=== PATIENT | female | born 1965 | race Caucasian/White ===

== ENCOUNTER 2019-07-19 10:09 | Emergency (ER) | payer OTHER ==
--- OUTSIDE RECORDS SUMMARY | 2019-07-19 10:15 | XMS REPORT ---
:1965 Author Organization e[employer]Works Care Team Providers Name Role Phone Griffin Chadwick Provider Role Unavailable Allergies No Known Allergies Problems Problem Type Condition Code Onset Dates Condition Status Problem Morbid obesity E66.01 Active Problem Hypertension I10 Active Problem Piriformis syndrome of right side G57.01 Active Medications No Known Medications Results No Known Results Summary Purpose eClinicalWorks Submission
--- OUTSIDE RECORDS SUMMARY | 2019-07-19 10:15 | XMS REPORT ---
:1965 Author Organization [employer] Care Team Providers Name Role Phone Heather Gallegos Provider Role Unavailable Allergies, Adverse Reactions, Alerts Substance Reaction Event Type N.K.D.A. Info Not Available Non Drug Allergy Problems Problem Type Condition Code Onset Dates Condition Status Problem Morbid obesity E66.01 Active Problem Hypertension I10 Active Assessment Acute cystitis without hematuria N30.00 Active Assessment Dysuria R30.0 Active Medications Medication Code Code Instructions Start End Status Dosage System Date Date Nitrofurantoin [facility] 12327604160 100 MG Orally Jul 25, Jul Active 1 capsule Macrocrystal BID 2017, with food 2018 or milk Colestipol HCl [facility] [address]-87 1 GM Orally Active 1 tablet Twice a day Results Name Result Date Reference Range Unit Abnormality Flag URINALYSIS AUTO W/O SCOPE (52990) ----NIT P [id number] ----URO 2.0 20180725 ----PROTEIN 1+ 20180725 ----pH 7 20180725 ----BLO N [id number] ----GLUCOSE TR [id number] ----SABAS N [id number] ----BILIRUBIN 1+ [id number] ----KETONES N [id number] ----SPECIFIC GRAVITY 1.015 [id number] Summary Purpose eClinicalWorks Submission
--- OUTSIDE RECORDS SUMMARY | 2019-07-19 10:15 | XMS REPORT ---
:1965 Author Organization [employer] Care Team Providers Name Role Phone Heather Gallegos Provider Role Unavailable Allergies No Known Allergies Problems Problem Type Condition Code Onset Dates Condition Status Problem Morbid obesity E66.01 Active Problem Hypertension I10 Active Problem Piriformis syndrome of right side G57.01 Active Medications No Known Medications Results No Known Results Summary Purpose eClinicalWorks Submission
--- OUTSIDE RECORDS SUMMARY | 2019-07-19 10:15 | XMS REPORT ---
:1965 Author Organization [employer]Works Care Team Providers Name Role Phone Nika Gallegosy Provider Role Unavailable Allergies No Known Allergies Problems Problem Type Condition Code Onset Dates Condition Status Problem Morbid obesity E66.01 Active Problem Hypertension I10 Active Medications Medication Code System Code Instructions Start End Date Status Dosage Date Levofloxacin [facility] 87084351891 500 MG Orally Jul 28, Aug 04, Active 1 tablet Once a day 2017 2017 Results No Known Results Summary Purpose eClinicalWorks Submission
--- OUTSIDE RECORDS SUMMARY | 2019-07-19 10:15 | XMS REPORT ---
:1965 Author Organization [employer]Works Care Team Providers Name Role Phone Griffin Chadwick Provider Role Unavailable Allergies, Adverse Reactions, Alerts Substance Reaction Event Type N.K.D.A. Info Not Available Non Drug Allergy Problems Problem Type Condition Code Onset Dates Condition Status Assessment Piriformis syndrome of right side G57.01 Active Assessment Contusion of right hip, initial S70.01XA Active encounter Problem Morbid obesity E66.01 Active Problem Hypertension I10 Active Problem Piriformis syndrome of right side G57.01 Active Assessment Trochanteric bursitis of right hip M70.61 Active Assessment Ischial bursitis of right side M70.71 Active Assessment Pain in joint of right hip M25.551 Active Medications Medication Code Code Instructions Start End Status Dosage System Date Date Vitamin D-3 [facility] 25354-47[address] Active not defined Calcium Citrate [facility] 15112-77545 Active not defined Multivitamin [facility] 10252-52943 Active not defined Colestipol HCl [facility] 03480510557 1 GM Orally Active 1 tablet Twice a day Vitamin B-12 [facility] 20398-44466 Active not defined Results Name Result Date Reference Range Unit Abnormality Flag Physical Therapy Summary Purpose eClinicalWorks Submission
--- OUTSIDE RECORDS SUMMARY | 2019-07-19 10:15 | XMS REPORT ---
:1965 Author Organization [employer]ClinicalWorks Care Team Providers Name Role Phone Ana Maria Gallegos Provider Role Unavailable Allergies, Adverse Reactions, Alerts Substance Reaction Event Type N.K.D.A. Info Not Available Non Drug Allergy Problems Problem Type Condition Code Onset Dates Condition Status Assessment Rhonchi R09.89 Active Assessment Bronchitis J40 Active Assessment Cough R05 Active Problem Bronchitis J40 Active Problem Rhonchi R09.89 Active Problem Cough R05 Active Problem Hypertension I10 Active Problem Piriformis syndrome of right side G57.01 Active Problem Morbid obesity E66.01 Active Medications Medication Code Code Instructions Start End Status Dosage System Date Date Vitamin D-3 [facility] 53704-[address] Active not defined Azithromycin [facility] 84435277065 250 MG Orally Jun 22, Jun 27, Active 2 tablets Once a day 2018 2018 on the first day, then 1 tablet daily for 4 days Multivitamin [facility] 54604-[address]157 Active not defined Calcium Citrate [facility] 31728-42611 Active not defined Vitamin B-12 [facility] 21909-11390 Active not defined ProAir HFA [facility] 54072692881 108 (90 Base) Jun 22, Active 2 puffs as MCG/ACT 2019 needed Inhalation every 6 hrs Colestipol HCl [facility] 04224088525 1 GM Orally Active 1 tablet Twice a day Results No Known Results Summary Purpose eClinicalWorks Submission
--- OUTSIDE RECORDS SUMMARY | 2019-07-19 10:15 | XMS REPORT ---
:1965 Author Organization eClinicalWorks Care Team Providers Name Role Phone Rosy Heather Provider Role Unavailable Allergies, Adverse Reactions, Alerts Substance Reaction Event Type N.K.D.A. Info Not Available Non Drug Allergy Problems Problem Type Condition Code Onset Dates Condition Status Problem Morbid obesity E66.01 Active Problem Hypertension I10 Active Assessment Callus of foot L84 Active Assessment Rib pain on right side R07.81 Active Medications Medication Code Code Instructions Start End Status Dosage System Date Date Colestipol HCl [facility] 11282588637 1 GM Orally Active 1 tablet Twice a day Multivitamin [facility] 78041-[address]309 Active not defined Calcium Citrate [facility] [address]18-[address] Active not defined Vitamin D-3 [facility] [address]72-[address]703 Active not defined Vitamin B-12 [facility] [address]93-[address]78 Active not defined Results No Known Results Summary Purpose eClinicalWorks Submission
--- OUTSIDE RECORDS SUMMARY | 2019-07-19 10:15 | XMS REPORT ---
:1965 Author Organization eClinicalWorks Care Team Providers Name Role Phone Heather Gallegos Provider Role Unavailable Allergies No Known Allergies Problems Problem Type Condition Code Onset Dates Condition Status Problem Morbid obesity E66.01 Active Problem Hypertension I10 Active Medications No Known Medications Results No Known Results Summary Purpose eClinicalWorks Submission
[2019-07-19] MEDS ORDERED: dexAMETHasone 10 MG/ML VIAL ONE (11:46)
[2019-07-19] MEDS ORDERED: MEPERIDINE HCL 25 MG/0.5 ML ONE ×2 (11:46→14:24)
[2019-07-19] MEDS ORDERED: NA CHLORIDE 0.9% 1,000 ML ONE (11:47)
[2019-07-19] MEDS ORDERED: METOCLOPRAMIDE 10 MG/2mL INJ ONE (11:47)
[2019-07-19] MEDS ORDERED: ONDANSETRON 4 MG/2 ML VIAL ONE ×2 (12:31→14:24)
--- NOTE | 2019-07-19 12:55 | RAD REPORT ---
EXAM DESCRIPTION: CT - Head Brain Wo Cont - 07/19/2019 12:43 pm CLINICAL HISTORY: HEADACHE Headache, drowsiness COMPARISON: <Comparisons> TECHNIQUE: All CT scans are performed using dose optimization technique as appropriate and may inclu de automated exposure control or mA/KV adjustment according to patient size. FINDINGS: No intracranial hemorrhage, hydrocephalus or extra-axial fluid collection.No areas of brai n edema or evidence of midline shift. The paranasal sinuses and mastoids are clear. The calvarium is intact. IMPRESSION: No acute intracranial abnormality.
[2019-07-19 13:16] LABS: Absolute Lymphocytes (CBC) 1.5 K/uL (0.7-4.9); Basophils % 0.4 % (0-1.3); Hematocrit 42.6 % (36.0-45.0); RBC Red Blood Cell Count 4.68 M/uL (3.86-4.86)
[2019-07-19 13:38] LABS: Urine Blood NEGATIVE (NEG); Urine Glucose NEGATIVE (NEG); Urine Protein NEGATIVE (NEG); Urine Specific Gravity 1.015 (1.005-1.030)
[2019-07-19] MEDS ORDERED: DIPHENHYDRAMINE 50 MG/ML VIAL ONE (14:33)
--- NOTE | 2019-07-19 14:38 | RAD REPORT ---
EXAM DESCRIPTION: CT - Head angio - 07/19/2019 2:13 pm CLINICAL HISTORY: acute onset headache TECHNIQUE: During dynamic enhancement using nonionic IV contrast, axial 1 millimeter thick images of the head were obtained. Sagittal and axial reconstruction images were generated using MIP technique and reviewed. All CT scans are performed using dose optimization technique as appropriate and may include automated exposure control or mA/KV adjustment according to patient size. COMPARISON: CT head same date FINDINGS: No aneurysm or vascular malformation identified. Major venous sinuses are patent. No stenosis, named branch occlusion, vasculitis or other significant vascular finding identifiable. IMPRESSION: Negative CT angio head examination.
--- NOTE | 2019-07-19 15:41 | ER ---
Nurse's Notes [facility] Name: Marjorie Vega Age: 54 yrs Sex: Female : 1965 Arrival Date: 07/19/2019 Time: 10:12 Bed 8 Private MD: Diagnosis: Headache;Hypertension Presentation: 07/19 10:36 Presenting complaint: Patient states: headache to whole head and sinus pressure that aa5 began this morning around 0500. Pt reports nausea, denies vomiting. Reports runny nose, denies cough. Transition of care: patient was not received from another setting of care. Onset of symptoms was July 19, 2019. Risk Assessment: Do you want to hurt yourself or someone else? Patient reports no desire to harm self or others. Initial Sepsis Screen: Does the patient meet any 2 criteria? No. Patient's initial sepsis screen is negative. Does the patient have a suspected source of infection? No. Patient's initial sepsis screen is negative. Care prior to arrival: None. 10:36 Acuity: SHREYA 3 aa5 10:36 Method Of Arrival: Ambulatory aa5 Triage Assessment: 12:20 Headache History: The patient has had previous headaches and this one is different than sv previous episodes. 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 - Social history:: Smoking status: Patient/guardian denies using tobacco. - Ebola Screening: : No symptoms or risks identified at this time. - Family history:: not pertinent. - Hospitalizations: : No recent hospitalization is reported. Screenin:20 Abuse screen: Denies threats or abuse. Denies injuries from another. Nutritional sv screening: No deficits noted. Tuberculosis screening: No symptoms or risk factors identified. Fall Risk None identified. Assessment: 12:20 General: Appears in no apparent distress. uncomfortable, well groomed, well developed, sv Behavior is calm, cooperative, appropriate for age. Pain: Complains of pain in right frontal area and right temporal area Pain radiates to "to the whole other part of the head" Pain currently is 9 out of 10 on a pain scale. Quality of pain is described as throbbing, Pain began gradually, Is continuous, Aggravated by talking or moving. Neuro: Level of Consciousness is awake, alert, obeys commands, Oriented to person, place, time, situation, Moves all extremities. Full function Gait is steady, Reports headache. Respiratory: Airway is patent Respiratory effort is even, unlabored, Respiratory pattern is regular, symmetrical. GI: Reports nausea. Derm: Skin is pink, warm \\T\\ dry. 12:45 Reassessment: Patient appears in no apparent distress at this time. Patient and/or sv family updated on plan of care and expected duration. Pain level reassessed. Patient is alert, oriented x 3, equal unlabored respirations, skin warm/dry/pink. 14:33 Reassessment: Patient appears in no apparent distress at this time. Patient and/or sv family updated on plan of care and expected duration. Pain level reassessed. Patient is alert, oriented x 3, equal unlabored respirations, skin warm/dry/pink. Hives noted to the pt's left arm after demerol administered. Informed Dr Mauro, medication order given. 15:58 Reassessment: Patient appears in no apparent distress at this time. Patient and/or sv family updated on plan of care and expected duration. Pain level reassessed. Patient is alert, oriented x 3, equal unlabored respirations, skin warm/dry/pink. Rash and hives are gone Patient states feeling better. Patient states symptoms have improved. Vital Signs: 10:38 BP 161 / 80; Pulse 68; Resp 18 S; Temp 97.9(O); Pulse Ox 98% on R/A; Weight 111.13 kg aa5 (R); Height 5 ft. 4 in. (162.56 cm) (R); Pain 9/10; 13:03 BP 144 / 70; Pulse 56; Resp 18; Pulse Ox 100% ; sv 13:43 BP 138 / 74; Pulse 49; Resp 16; Pulse Ox 100% ; sv 14:25 BP 150 / 69; Pulse 61; Resp 16; Pulse Ox 99% ; sv 15:00 BP 162 / 79; Pulse 52; Resp 16; Pulse Ox 99% ; sv 15:45 BP 158 / 78; Pulse 53; Resp 16; Pulse Ox 99% ; sv 10:38 Body Mass Index 42.05 (111.13 kg, 162.56 cm) aa5 Lynette Coma Score: 15:35 Eye Response: spontaneous(4). Verbal Response: oriented(5). Motor Response: obeys rn commands(6). Total: 15. ED Course: 10:12 Patient arrived in ED. mr 10:36 Arm band placed on. aa5 10:37 Triage completed. aa5 11:31 Ambika Alonso, RN is Primary Nurse. sv 11:31 Diimtri Mauro MD is Attending Physician. rn 12:20 Patient has correct armband on for positive identification. Placed in gown. Bed in low sv position. Call light in reach. Adult w/ patient. Pulse ox on. NIBP on. Door closed. Head of bed elevated. 12:23 Missed attempt(s): 22 gauge in right forearm. Bleeding controlled, band aid applied, sv catheter tip intact. 12:30 Initial lab(s) drawn, by me, sent to lab. Inserted saline lock: 24 gauge in left sv forearm, using aseptic technique. ,using aseptic technique. diffusics Blood collected. Flushed left forearm with 5 ml normal saline. 12:[address] via stretcher. sv 12:[address]. sv 13:34 Urine Dipstick--Ancillary (enter results) Sent. sv 13:42 Initial lab(s) drawn, by me, sent to lab. Inserted saline lock: 22 gauge in right jb1 antecubital area, using aseptic technique. 13:43 Awaiting lab results, Awaiting CT Scan. sv 14:26 CT Head Angio In Process Unspecified. EDMS 14:39 Throat Culture Sent. sv 14:55 CT Head Brain wo Cont Sent. sv 15:58 No provider procedures requiring assistance completed. IV discontinued, intact, sv bleeding controlled, No redness/swelling at site. Pressure dressing applied. Administered Medications: 12:32 Drug: NS 0.9% 1000 ml Route: IV; Rate: 1000 ml; Site: left forearm; sv 13:45 Follow up: Response: No adverse reaction; IV Status: Completed infusion; IV Intake: sv 1000ml 12:32 Drug: Demerol 25 mg Route: IVP; Site: left forearm; sv 12:45 Follow up: Response: No adverse reaction; RASS: Alert and Calm (0) sv 12:34 Drug: Decadron - Dexamethasone 10 mg Route: IVP; Site: left forearm; sv 12:45 Follow up: Response: No adverse reaction sv 12:36 Drug: Reglan 10 mg Route: IVP; Site: left forearm; sv 12:45 Follow up: Response: No adverse reaction sv 12:37 Drug: Zofran 4 mg Route: IVP; Site: left forearm; sv 12:45 Follow up: Response: No adverse reaction; Nausea is decreased sv 14:30 Drug: Zofran 4 mg Route: IVP; Site: left forearm; sv 14:33 Follow up: Response: No adverse reaction sv 14:32 Drug: Demerol 25 mg {Note: RASS0.} Route: IVP; Site: left forearm; sv 14:33 Follow up: Response: Adverse reaction, Physician notified sv 14:35 Drug: Benadryl 50 mg Route: IVP; Site: right antecubital; sv 14:55 Follow up: Response: No adverse reaction sv Intake: 13:45 IV: 1000ml; Total: 1000ml. sv Outcome: 15:39 Discharge ordered by . rn 15:58 Discharged to home via wheelchair, with family. sv 15:58 Condition: stable 15:58 Condition: improved 15:58 Discharge instructions given to patient, family, Instructed on discharge instructions, follow up and referral plans. Demonstrated understanding of instructions, follow-up care. 15:59 Patient left the ED. sv Signatures: Dispatcher [employer] Manolo Escalera Stephanie, RN RN sv Rivera, Mary mr Nieto, Roman, MD MD rn Calderon, Audri, RN RN aa5
--- NOTE | 2019-07-19 15:41 | EDPHYS ---
Physician Documentation [facility] Name: Marjorie Vega Age: 54 yrs Sex: Female : 1965 Arrival Date: 07/19/2019 Time: 10:12 Bed 8 Private MD: ED Physician Dimitri Mauro HPI: 07/19 11:50 This 54 yrs old Female presents to ER via Ambulatory with complaints of rn Headache, Nausea. 11:50 The patient complains of pain to the right frontal area, right side of the back of head rn and right temporal area. The patient describes the headache as aching. Onset: The symptoms/episode began/occurred this morning. Associated signs and symptoms: Pertinent positives: nausea, Pertinent negatives: altered mental status, fever, neck stiffness, rash, vision changes, vision loss, vomiting, vertigo. Severity of symptoms: At its worst the pain was moderate, in the emergency department the pain is unchanged. The symptoms are alleviated by nothing. the symptoms are aggravated by nothing. The patient has not experienced similar symptoms in the past. The patient has not recently seen a physician. Reports headache, right sided, began this AM, woke her up, no hx of headache, mother with brain metastatic tumor from lung. No chest pain/sob. NO trauma. NO focal neuro problems. . 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 - Social history:: Smoking status: Patient/guardian denies using tobacco. - Ebola Screening: : No symptoms or risks identified at this time. - Family history:: not pertinent. - Hospitalizations: : No recent hospitalization is reported. ROS: 11:50 Constitutional: Negative for fever, chills, and weight loss, Eyes: Negative for injury, rn pain, redness, and discharge, Neck: Negative for injury, pain, and swelling, Cardiovascular: Negative for chest pain, palpitations, and edema, Respiratory: Negative for shortness of breath, cough, wheezing, and pleuritic chest pain, Abdomen/GI: Negative for abdominal pain, vomiting, diarrhea, and constipation, MS/Extremity: Negative for injury and deformity, Skin: Negative for injury, rash, and discoloration, Neuro: Negative for weakness, numbness, tingling, and seizure. Exam: 11:50 Constitutional: This is a well developed, well nourished patient who is awake, alert, rn and in no acute distress. Head/Face: Normocephalic, atraumatic. Eyes: Pupils equal round and reactive to light, extra-ocular motions intact. Lids and lashes normal. Conjunctiva and sclera are non-icteric and not injected. Cornea within normal limits. Periorbital areas with no swelling, redness, or edema. ENT: Mild pharyngeal erythema, no exudate, no stridor Neck: Trachea midline, no thyromegaly or masses palpated, and no cervical lymphadenopathy. Supple, full range of motion without nuchal rigidity, or vertebral point tenderness. No Meningismus. Abdomen/GI: soft, non-tender Skin: Warm, dry with normal turgor. Normal color with no rashes, no lesions, and no evidence of cellulitis. MS/ Extremity: Pulses equal, no cyanosis. Neurovascular intact. Full, normal range of motion. Equal circumference. Neuro: Awake and alert, GCS 15, oriented to person, place, time, and situation. Cranial nerves II-XII grossly intact. Motor strength 5/5 in all extremities. Sensory grossly intact. Cerebellar exam normal. Vital Signs: 10:38 BP 161 / 80; Pulse 68; Resp 18 S; Temp 97.9(O); Pulse Ox 98% on R/A; Weight 111.13 kg aa5 (R); Height 5 ft. 4 in. (162.56 cm) (R); Pain 9/10; 13:03 BP 144 / 70; Pulse 56; Resp 18; Pulse Ox 100% ; sv 13:43 BP 138 / 74; Pulse 49; Resp 16; Pulse Ox 100% ; sv 14:25 BP 150 / 69; Pulse 61; Resp 16; Pulse Ox 99% ; sv 15:00 BP 162 / 79; Pulse 52; Resp 16; Pulse Ox 99% ; sv 15:45 BP 158 / 78; Pulse 53; Resp 16; Pulse Ox 99% ; sv 10:38 Body Mass Index 42.05 (111.13 kg, 162.56 cm) aa5 Lynette Coma Score: 15:35 Eye Response: spontaneous(4). Verbal Response: oriented(5). Motor Response: obeys rn commands(6). Total: 15. MDM: 11:31 Patient medically screened. rn 15:35 Differential diagnosis: cluster headache, hypertensive headache, migraine, neoplasm, rn tension headache, vasomotor headache. Data reviewed: vital signs, nurses notes, lab test result(s), radiologic studies, CT scan, and as a result, I will discharge patient. Counseling: I had a detailed discussion with the patient and/or guardian regarding: the historical points, exam findings, and any diagnostic results supporting the discharge/admit diagnosis, lab results, radiology results, the need for outpatient follow up, to return to the emergency department if symptoms worsen or persist or if there are any questions or concerns that arise at home. Response to treatment: the patient's symptoms have markedly improved after treatment, and as a result, I will discharge patient. Special discussion: I have referred the patient to see his PCP for further evaluation of high blood pressure. I discussed with the patient/guardian in detail that at this point there is no indication for admission to the hospital. It is understood, however, that if the symptoms persist or worsen the patient needs to return immediately for re-evaluation. Based on the history and exam findings, there is no indication for further emergent testing or inpatient evaluation. I discussed with the patient/guardian the need to see the neurologist for further evaluation of the symptoms. 07/19 11:42 Order name: Strep; Complete Time: 13:37 07/19 11:42 Order name: [place] Screen Profile; Complete Time: 15:29 07/19 12:34 Order name: CBC with Diff; Complete Time: 13:37 07/19 12:34 Order name: Basic Metabolic Panel rn 07/19 13:18 Order name: Urine Dipstick--Ancillary (enter results) dh3 07/19 13:41 Order name: Urine Dipstick-Ancillary; Complete Time: 15:29 EDMI 07/19 11:42 Order name: CT Head Brain wo Cont 07/19 11:42 Order name: CT Head Angio; Complete Time: 15:29 07/19 13:44 Order name: Throat Culture EDMI 07/19 15:23 Order name: CT; Complete Time: 15:29 [facility] 07/19 11:42 Order name: IV Start; Complete Time: 12:42 rn Administered Medications: 12:32 Drug: NS 0.9% 1000 ml Route: IV; Rate: 1000 ml; Site: left forearm; sv 13:45 Follow up: Response: No adverse reaction; IV Status: Completed infusion; IV Intake: sv 1000ml 12:32 Drug: Demerol 25 mg Route: IVP; Site: left forearm; sv 12:45 Follow up: Response: No adverse reaction; RASS: Alert and Calm (0) sv 12:34 Drug: Decadron - Dexamethasone 10 mg Route: IVP; Site: left forearm; sv 12:45 Follow up: Response: No adverse reaction sv 12:36 Drug: Reglan 10 mg Route: IVP; Site: left forearm; sv 12:45 Follow up: Response: No adverse reaction sv 12:37 Drug: Zofran 4 mg Route: IVP; Site: left forearm; sv 12:45 Follow up: Response: No adverse reaction; Nausea is decreased sv 14:30 Drug: Zofran 4 mg Route: IVP; Site: left forearm; sv 14:33 Follow up: Response: No adverse reaction sv 14:32 Drug: Demerol 25 mg {Note: RASS0.} Route: IVP; Site: left forearm; sv 14:33 Follow up: Response: Adverse reaction, Physician notified sv 14:35 Drug: Benadryl 50 mg Route: IVP; Site: right antecubital; sv 14:55 Follow up: Response: No adverse reaction sv Disposition: 07/19/19 15:39 Discharged to Home. Impression: Headache, Hypertension. - Condition is Stable. - Discharge Instructions: General Headache Without Cause, Migraine Headache, Hypertension. - Medication Reconciliation Form, Thank You Letter, Antibiotic Education, Prescription Opioid Use form. - Follow up: Private Physician; When: As needed; Reason: Recheck today's complaints, Re-evaluation by your physician. - Problem is new. - Symptoms have improved. Signatures: Dispatcher [employer] [facility] Ambika Alonso RN Dimitri Rayo MD MD rn Calderon, Audri RN RN aa5 Corrections: (The following items were deleted from the chart) 15:59 15:39 07/19/2019 15:39 Discharged to Home. Impression: Headache; Hypertension. sv Condition is Stable. Forms are Medication Reconciliation Form, Thank You Letter, Antibiotic Education, Prescription Opioid Use. Follow up: Private Physician; When: As needed; Reason: Recheck today's complaints, Re-evaluation by your physician. Problem is new. Symptoms have improved. rn
== END 2019-07-19 15:59 | disposition home or self-care (01) ==
LOC: ER 10:09
DX: I10 Essential (primary) hypertension (principal); Z88.1 Allergy status to other antibiotic agents; Z88.5 Allergy status to narcotic agent; Z91.048 Other nonmedicinal substance allergy status
CPT/HCPCS: 96361; 87070; 85025; 80048; 36415; 86308; 87081; 81003; 70450; 70496; 96375; 96374; 99284; Q9967; J2765; J1100; J2175 ×2; J7030; J2405 ×2

== ENCOUNTER 2020-05-02 10:52 | Emergency (ER) | payer OTHER ==
--- NOTE | 2020-05-02 11:46 | RAD REPORT ---
EXAM DESCRIPTION: CT - Stone Protocol - 05/02/2020 11:31 am CLINICAL HISTORY: Flank pain. left flank pain COMPARISON: Abdomen Pelvis W Contrast dated 04/18/2017 TECHNIQUE: Axial images were obtained without oral or IV contrast. Lack of contrast limits solid org an and vascular assessment. The [id number] spans the entirety of the system partially obscuring uppermost abdomen and lung bases. Coronal reformatted images were obtained and reviewed. All CT scans are performed using dose optimization technique as appropriate and may include automated exposure control or mA/KV adjustment according to patient size. FINDINGS: The lower lung saeed are clear. Postsurgical changes are present about the stomach. Kinza cystectomy clips. Several low-density liver lesions are present with vague 4 cm lesion present in the inferior medial r ight lobe, unchanged.No intra or extrahepatic biliary tree dilatation cholecystectomy clips. Normal s pleen. The pancreas and adrenal glands are normal. No pathologic lymphadenopathy in the abdomen or pe lvis. The large parapelvic left renal cyst with probable mild left hydronephrosis noted. The parapelvic cys t measures 4 x 3 cm and has increased in size since 2017 comparative study. No obstructing urinary tr act stones. No right-sided hydronephrosis. No bowel obstruction, free air, free fluid or abscess. Normal appendix noted. No significant bony abnormality. IMPRESSION: Large parapelvic left renal cyst (4 x 3 cm) with mild left hydronephrosis suspected. No urinary tract stones are identified.
--- OUTSIDE RECORDS SUMMARY | 2020-05-02 11:48 | XMS REPORT | Continuity of Care Document ---
:1965 Author Organization [facility] t Address [address] [place] [address] [address] [place] [address] Care Team Providers Name Role Phone Unavailable Unavailable Unavailable Problems Condition Condition Condition Status Onset Resolution Last Treating Co mments Source Name Details Category Date Date Treatment Clinician Date Morbid Morbid Problem Active [facility] Hypertensi Hypertensi Problem Active [facility] Piriformis Piriformis Problem Active [facility] syndrome syndrome [facility] right of right [facility] side side l [facility] Rhonchi Rhonchi Problem Active [facility] Bronchitis Bronchitis Problem [facility] Cough Cough Problem [facility] Encounter Encounter Problem Active [facility] for [facility] general general [facility] adult adult l medical medical Outpati examinatio examinatio en t n with n with Clinics abnormal abnormal findings findings Fatigue, Fatigue, Problem Active [facility] unspecifie unspecifie [place] - d type d type [facility] Allergies, Adverse Reactions, Alerts Allergy Allergy Status Severity Reaction(s) Onset Inactive Treating Comm ents Source Name Type Date Date Clinician MORPHINE Adverse Active Info Not [facility] Reaction Available [facility] Medications Ordered Filled Start Stop Current Ordering Indication Dosage Frequency Signature Comments Components Source Medication Medication Date Date Medication? Clinician (SIG) Name Name Levothyroxi Levothyroxi Yes Ana Maria [address] [facility] ne Sodium ne Sodium 1-31 [place] in the [place] - 00:00: morning on Memoria 00 an empty l stomach Outpati ent Clinics Procedures This patient has no known procedures. Encounters Start End Encounter Admission Attending Care Care Encounter Source Date/Time Date/Time Type Type Clinicians Facility Department ID 2019-12-20 2019-12-20 [facility] [id number] [facility] 17:37:00 17:37:00 t [facility] Outpati ent Clinics 2019-12-15 2019-12-15 [facility] [id number] [facility] 16:19:00 16:19:00 t [facility] Outpati ent Clinics 2019-12-13 2019-12-13 [facility] [id number] [facility] 08:00:00 08:00:00 t [facility] Medicine Outpati ent Clinics 2019-07-19 2019-07-19 [facility] [id number] [facility] 09:29:00 09:29:00 t [facility] Medicine Outpati ent Clinics 2019-06-22 2019-06-22 [facility] [id number] [facility] 11[facility]40:00 11:40:00 t [facility] Outpati ent Clinics 2019-05-19 2019-05-19 [facility] [id number] [address] 15:59:00 15:59:00 t [facility] 2019-02-28 2019-02-28 [facility] [id number] [address] 15:24:00 15:24:00 [facility] Clinics 2019-02-28 2019-02-28 [facility] [id number] [address] 11:00:00 11:00:00 t [facility] ent Clinics 2018-11-29 2018-11-29 [facility] [id number] [facility] 10:00:00 10:00:00 t [facility] Outpati ent Clinics 2018-10-25 2018-10-25 [facility] [id number] 11:06:00 11:06:00 t [facility] 2018-07-28 2018-07-28 [facility] [id number] [address] 11:23:00 11:23:00 [facility] Outpati ent Clinics 2018-07-25 2018-07-25 Outpatient [facility] [id number] 09:30:00 09:30:00 [facility] 2018-06-03 2018-06-03 Outpatient Effie [facility] [id number] [facility] 10:30:00 10:30:00 [facility] Results This patient has no known results.
[2020-05-02] MEDS ORDERED: NA CHLORIDE 0.9% 500 ML ONE (11:53)
[2020-05-02] MEDS ORDERED: KETOROLAC 30 MG/ML INJ ONE (11:53)
[2020-05-02 12:18] LABS: Absolute Lymphocytes (CBC) 1.8 K/uL (0.7-4.9); Basophils % 0.6 % (0-1.3); Lymphocytes % 31.4 % (15.3-44.8); MPV 9.2 fL (7.6-11.3); RBC Red Blood Cell Count 4.53 M/uL (3.86-4.86)
[2020-05-02 12:29] LABS: ALT/SGPT 25 U/L (12-78); AST/SGOT 20 U/L (15-37); Albumin 3.9 g/dL (3.4-5.0); Alkaline Phosphatase 91 U/L (45-117); BUN Blood Urea Nitrogen 12 mg/dL (7-18); Bicarbonate 28 mmol/L (21-32); Bilirubin Direct 0.1 mg/dL (0-0.2); Bilirubin Total 0.4 mg/dL (0.2-1.0); Glucose Level 83 mg/dL (74-106); Lipase 86 U/L (73-393); Potassium 3.8 mmol/L (3.5-5.1); Protein, Total 7.6 g/dL (6.4-8.2); Sodium Level 141 mmol/L (136-145)
[2020-05-02 12:34] LABS: Urine Bacteria <20 /HPF (<20); Urine Culture Reflex Order REFLEXED; Urine Mucus LIGHT /HPF (NONE SEEN); Urine RBC <5 /HPF (NONE SEEN)
--- NOTE | 2020-05-02 13:13 | EDPHYS ---
Physician Documentation [facility] Name: Marjorie Vega Age: 54 yrs Sex: Female : 1965 Arrival Date: 05/02/2020 Time: 10:55 Bed 6 Private MD: ED Physician Juan Miller HPI: 05/02 11:40 This 54 yrs old Female presents to ER via Ambulatory with complaints of cp Possible Kidney Stone. 11:40 The patient complains of pain in the left flank. cp 11:40 The pain radiates to the left lateral abdomen. Onset: The symptoms/episode cp began/occurred yesterday. Modifying factors: the symptoms are aggravated by movement. Associated signs and symptoms: Pertinent negatives: diarrhea, dysuria, fever, hematuria, pain radiating to the lower extremities, vomiting. Severity of pain: in the emergency department the pain is unchanged despite home interventions. The patient has experienced similar episodes in the past, today's symptoms are similar, to when the patient was apparently diagnosed with kidney stone. 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 - Social history:: Smoking status: Patient denies any tobacco usage or history of. ROS: 11:43 Eyes: Negative for injury, pain, redness, and discharge. cp 11:43 Constitutional: Negative for body aches, chills, fever. 11:43 ENT: Negative for ear pain, sore throat, difficulty swallowing, difficulty handling secretions. 11:43 Cardiovascular: Negative for chest pain. 11:43 Respiratory: Negative for cough, shortness of breath, wheezing. 11:43 Abdomen/GI: Negative for abdominal pain, nausea, vomiting, and diarrhea, black/tarry stool, rectal bleeding. 11:43 Back: Positive for flank pain, on the left. 11:43 Neuro: Negative for headache, weakness. 11:43 All other systems are negative. Exam: 11:45 Head/Face: Normocephalic, atraumatic. cp 11:45 Constitutional: The patient appears in no acute distress, alert, awake, non-toxic, well developed, well nourished. 11:45 Eyes: Periorbital structures: appear normal, Conjunctiva: normal, no exudate, no injection, Sclera: no appreciated abnormality, Lids and lashes: appear normal, bilaterally. 11:45 ENT: External ear(s): are unremarkable, Nose: is normal, Mouth: Lips: moist, Oral mucosa: moist, Posterior pharynx: Airway: no evidence of obstruction, patent. 11:45 Chest/axilla: Inspection: normal, Palpation: is normal, no crepitus, no tenderness. cp 11:45 Cardiovascular: Rate: normal, Rhythm: regular, Edema: is not appreciated, JVD: is not appreciated. 11:45 Respiratory: the patient does not display signs of respiratory distress, Respirations: normal, no use of accessory muscles, no retractions, labored breathing, is not present, Breath sounds: are clear throughout, no decreased breath sounds. 11:45 Abdomen/GI: Inspection: abdomen appears normal, Bowel sounds: active, all quadrants, cp Palpation: soft, in all quadrants, mild abdominal tenderness, in the posterior aspect of left lateral abdomen and anterior aspect of left lateral abdomen, rebound tenderness, is not appreciated, voluntary guarding, is not appreciated, involuntary guarding, is not appreciated. 11:45 Back: pain, that is moderate, of the left low back and left mid back, ROM is painful, vertebral tenderness, is not appreciated, Straight leg raises: of both lower extremities does not illicit pain. 11:45 Skin: no rash present. 11:45 Neuro: Orientation: to person, place \T\ time. Mentation: is normal, Motor: moves all fours, strength is normal, Gait: is steady. Vital Signs: 10:57 BP 162 / 89; Pulse 78; Resp 15; Temp 97.5(TE); Pulse Ox 100% on R/A; Weight 110.22 kg; ss Height 5 ft. 4 in. (162.56 cm); Pain 5/10; 12:15 BP 178 / 89; Pulse 89; Resp 16; Pulse Ox 99% ; bp 13:45 BP 165 / 84; Pulse 88; Resp 17; Pulse Ox 100% ; jl7 10:57 Body Mass Index 41.71 (110.22 kg, 162.56 cm) ss MDM: 11:11 Patient medically screened. cp 13:00 Data reviewed: vital signs, nurses notes, lab test result(s), radiologic studies, CT cp scan. 13:00 Differential diagnosis: nephrolithiasis, pyelonephritis, UTI, pancreatitis, ruptured cp AAA, dissecting AAA. Counseling: I had a detailed discussion with the patient and/or guardian regarding: the historical points, exam findings, and any diagnostic results supporting the discharge/admit diagnosis, lab results, radiology results, the need for outpatient follow up, a urologist, to return to the emergency department if symptoms worsen or persist or if there are any questions or concerns that arise at home. Response to treatment: the patient's symptoms have markedly improved after treatment, and as a result, I will discharge patient. ED course: VSS. Pain improved with meds. Discussed results of CT showing enlarged renal cyst left kidney. Patient instructed on need to f/u with urology. Will discharge to home for continued monitoring. 05/02 11:12 Order name: Urine Microscopic Only; Complete Time: 12:46 05/02 12:46 Interpretation: Reviewed. 05/02 11:22 Order name: Basic Metabolic Panel; Complete Time: 12:46 cp 05/02 11:22 Order name: CBC with Diff; Complete Time: 12:46 cp 05/02 11:22 Order name: Hepatic Function; Complete Time: 12:46 cp 05/02 11:22 Order name: Lipase; Complete Time: 12:46 cp 05/02 12:22 Order name: Urine Dipstick--Ancillary (enter results) 05/02 11:12 Order name: Urine Dipstick-Ancillary (obtain specimen); Complete Time: 12:01 05/02 11:22 Order name: IV Saline Lock; Complete Time: 12:01 cp 05/02 11:22 Order name: Labs collected and sent; Complete Time: 12:01 cp 05/02 11:22 Order name: CT Stone Protocol; Complete Time: 12:13 cp 05/02 12:22 Order name: Urine --Ancillary (enter results) 05/02 12:36 Order name: Urine Culture EDUT 05/02 11:22 Order name: Urine Test (obtain specimen); Complete Time: 12:01 cp Administered Medications: 12:00 Drug: NS 0.9% 500 ml Route: IV; Rate: bolus; Site: right forearm; bp 12:00 Drug: TORadol - Ketorolac 15 mg Route: IVP; Site: right forearm; bp Disposition: 05/02/20 13:12 Discharged to Home. Impression: Low back pain - left, Left Renal Cyst. - Condition is Stable. - Discharge Instructions: Back Pain, Adult. - Prescriptions for Cyclobenzaprine 10 mg Oral Tablet - take 1 tablet by ORAL route every 8 hours As needed; 30 tablet. Tramadol 50 mg Oral Tablet - take 1 tablet by ORAL route every 8 hours as needed; 20 tablet. - Medication Reconciliation Form, Thank You Letter, Antibiotic Education, Prescription Opioid Use form. - Follow up: Salma George MD; When: 1 - 2 days; Reason: Recheck today's complaints. - Problem is new. - Symptoms have improved. Addendum: 05/03/2020 14:52 Co-signature as Attending Physician, Juan Miller MD I agree with the assessment and k dr plan of care. Signatures: Dispatcher [employer] EDUT Juan Miller MD MD [facility] Tamy Traylor RN RN Damir Merida PA PA cp Osmar yPle RN RN jl7 Aleksey Travis, RN RN bp Corrections: (The following items were deleted from the chart) 05/02 14:01 13:12 05/02/2020 13:12 Discharged to Home. Impression: Low back pain - left; Left Renal jl7 Cyst. Condition is Stable. Forms are Medication Reconciliation Form, Thank You Letter, Antibiotic Education, Prescription Opioid Use. Follow up: Salma George; When: 1 - 2 days; Reason: Recheck today's complaints. Problem is new. Symptoms have improved. cp
--- NOTE | 2020-05-02 13:13 | ER ---
Nurse's Notes [facility] Name: Marjorie Vega Age: 54 yrs Sex: Female : 1965 Arrival Date: 05/02/2020 Time: 10:55 Bed 6 Private MD: Diagnosis: Low back pain-left;Left Renal Cyst Presentation: 05/02 10:57 Chief complaint: Patient states: Continuous dull left flank pain with intermittent ss sharp pains that began yesterday evening. Denies burning with urination/ frequency. Coronavirus screen: Proceed with normal triage. Patient denies a cough. Patient denies shortness of breath or difficulty breathing. Patient denies measured and/or subjective temperature greater than 100.4F prior to today's visit. Patient denies travel on a cruise ship or to a country the [facility] currently lists as an affected area. Patient denies contact with known and/or suspected case of COVID-19. Ebola Screen: Patient denies exposure to infectious person. Patient denies travel to an Ebola-affected area in the 21 days before illness onset. Initial Sepsis Screen: Does the patient meet any 2 criteria? No. Patient's initial sepsis screen is negative. Does the patient have a suspected source of infection? No. Patient's initial sepsis screen is negative. Risk Assessment: Do you want to hurt yourself or someone else? Patient reports no desire to harm self or others. Onset of symptoms was May 01, 2020. 10:57 Method Of Arrival: Ambulatory ss 10:57 Acuity: SHREYA 3 ss Triage Assessment: 11:00 General: Appears in no apparent distress. uncomfortable, obese, Behavior is calm, bp cooperative, appropriate for age. Pain: Complains of pain in left flank. EENT: No deficits noted. Neuro: No deficits noted. Cardiovascular: No deficits noted. Respiratory: No deficits noted. GI: No signs and/or symptoms were reported involving the gastrointestinal system. : Reports pain in left flank(s). Derm: No deficits noted. Musculoskeletal: No deficits noted. 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 - Social history:: Smoking status: Patient denies any tobacco usage or history of. Screenin:00 Abuse screen: Denies threats or abuse. Denies injuries from another. Nutritional bp screening: No deficits noted. Tuberculosis screening: No symptoms or risk factors identified. Fall Risk None identified. Assessment: 11:00 General: SEE TRIAGE NOTE. bp 12:17 Reassessment: PT RETURNED FROM CT, IVF INFUSING. RESULTS PENDING FOR DISPO. bp Vital Signs: 10:57 BP 162 / 89; Pulse 78; Resp 15; Temp 97.5(TE); Pulse Ox 100% on R/A; Weight 110.22 kg; ss Height 5 ft. 4 in. (162.56 cm); Pain 5/10; 12:15 BP 178 / 89; Pulse 89; Resp 16; Pulse Ox 99% ; bp 13:45 BP 165 / 84; Pulse 88; Resp 17; Pulse Ox 100% ; jl7 10:57 Body Mass Index 41.71 (110.22 kg, 162.56 cm) ED Course: 10:55 Patient arrived in ED. as 11:00 Triage completed. ss 11:00 Patient has correct armband on for positive identification. Bed in low position. Call bp light in reach. Side rails up X2. 11:01 Arm band placed on right wrist. ss 11:08 Damir Merida PA is PHCP. cp 11:08 Juan Miller MD is Attending Physician. cp 11:21 Aleksey Travis, RN is Primary Nurse. bp 11:33 CT Stone Protocol In Process Unspecified. EDMS 12:00 Inserted saline lock: 22 gauge in right forearm, using aseptic technique. Blood bp collected. 13:08 Salma George MD is Referral Physician. cp 13:59 No provider procedures requiring assistance completed. IV discontinued, intact, jl7 bleeding controlled, No redness/swelling at site. Pressure dressing applied. Administered Medications: 12:00 Drug: NS 0.9% 500 ml Route: IV; Rate: bolus; Site: right forearm; bp 12:00 Drug: TORadol - Ketorolac 15 mg Route: IVP; Site: right forearm; bp Outcome: 13:12 Discharge ordered by . cp 13:59 Discharged to home ambulatory, with family. jl7 13:59 Condition: stable 13:59 Discharge instructions given to patient, family, Instructed on discharge instructions, follow up and referral plans. medication usage, Demonstrated understanding of instructions, follow-up care, medications, Prescriptions given X 2. 14:01 Patient left the ED. jl7 Addendum: 05/05/2020 07:37 Addendum: Culture Results: Positive urine culture. Patient was not prescribed s s antibiotics at discharge. Report given to BRIANNA for further evaluation and then to sample maker original for follow up with patient. 09:53 Addendum: Other No answer, left VM. s s Signatures: Dispatcher [employer] EDLeora Hernandez Shelby, RN RN ss Damir Merida PA PA cp Leal, Jahala RN RN jl7 Aleksey Travis, RN RN bp
[2020-05-02 14:09] VITALS: TEMP 97.5
[2020-05-02 14:11] VITALS: BP 165/84; O2SAT 100
[2020-05-02 14:51] LABS: Urine Blood NEGATIVE (NEG); Urine Glucose NEGATIVE (NEG); Urine Protein NEGATIVE (NEG); Urine Specific Gravity 1.025 (1.005-1.030); Urine pH 7.5 (5.0-7.0)
== END 2020-05-02 14:01 | disposition home or self-care (01) ==
LOC: ER 10:52
DX: N28.1 Cyst of kidney, acquired (principal); I10 Essential (primary) hypertension; Z87.442 Personal history of urinary calculi; Z88.1 Allergy status to other antibiotic agents; Z88.5 Allergy status to narcotic agent; Z91.048 Other nonmedicinal substance allergy status
CPT/HCPCS: 87088; 85025; 87086; 80048; 36415; 81025; 80076; 87077; 87186; 83690; 76377; 74176; 96374; 99284; J7040; 81003; 81015

== ENCOUNTER 2020-09-06 10:00 | Emergency (ER) | payer OTHER ==
--- OUTSIDE RECORDS SUMMARY | 2020-09-06 10:02 | XMS REPORT | Continuity of Care Document ---
:1965 Author Organization [facility] t Address [address] [place] [address] Care Team Providers Name Role Phone Tacos VALDIVIA L Attending Clinician Problems This patient has no known problems. Allergies, Adverse Reactions, Alerts Allergy Allergy Status Severity Reaction(s) Onset Inactive Treating Comm ents Source Name Type Date Date Clinician MORPHINE Adverse Active Info Not [facility] Reaction Available [facility] ent Clinics Medications Ordered Filled Start Stop Current Ordering Indication Dosage Frequency Signature Comments Components Source Medication Medication Date Date Medication? Clinician (SIG) Name Name Levothyroxi Levothyroxi Yes Luz [address] [facility] ne Sodium ne Sodium 1-31 [place] [facility] the [facility]: morning on [facility] 00 an empty l stomach Outpati ent Clinics ProAir HFA ProAir HFA Yes Luz [address] [facility] 8-08 Kelsea needed [facility] l [facility] Clinics Colestipol Colestipol Yes Luz [address] [facility] HCl HCl [place] [facility] Multivitami Multivitami Yes Luz not [facility] n n [place] defined [facility] Calcium Calcium Yes Luz not [facility] Citrate Citrate [place] defined [facility] Vitamin D-3 Vitamin D-3 Yes Luz not [facility] K[facility]a defined [facility] Vitamin Vitamin Yes Luz not [facility] B-12 B-12 [place] defined [facility] Procedures This patient has no known procedures. Encounters Start End Encounter Admission Attending Care Care Encounter Source Date/Time Date/Time Type Type Clinicians Facility Department ID 2020-08-21 2020-08-21 Outpatient [facility] [id number] [facility] 2020-07-24 2020-07-24 Outpatient Effie Elise [id number] [facility] 12:35:00 12:35:00 t Specialty/U [facility] - Specialty rology [facility] /Urology Clinic l Clinic Outpati ent Clinics 2020-07-09 2020-07-09 Outpatient Effie Elise [id number] [facility] 08:30:00 08:30:00 t Specialty/U [facility] - Specialty rology Memori a /Urology Clinic l Clinic Outpati ent Clinics 2020-06-13 2020-06-13 [place] [id number] 08:05:00 23:59:00 Encounter Jean Bolton [id number] [place] [id number] [id number] 2020-06-13 2020-06-13 Office [facility] [phone] [id number] 09:03:14 09:34:55 Visit Jean Kate [facility] [id number] Surgical [id number] [facility] [id number] [address] [place] 2020-04-16 2020-04-16 Outpatient Effie Elise [id number] [address] 10:06:00 10:06:00 [facility] Medicine l Medicine [facility] 2019-12-20 2019-12-20 Outpatient Effie Elise [id number] [address] 17:37:00 17:37:00 t [facility] Medicine Outpati ent Clinics 2019-12-15 2019-12-15 [facility] [id number] 16:19:00 16:19:00 t [facility] Medicine Outpati ent Clinics 2019-12-13 2019-12-13 [facility] [id number] 08:00:00 08:00:00 t [facility] Medicine Outpati ent Clinics 2019-07-19 2019-07-19 [facility] [id number] 09:29:00 09:29:00 t [facility] Medicine Outpati ent Clinics 2019-06-22 2019-06-22 [facility] [id number] 11:40:00 11:40:00 [facility] Outpati ent Clinics 2019-05-19 2019-05-19 [facility] [id number] 15:59:00 15:59:00 t [facility] Medicine Outpati ent Clinics 2019-02-28 2019-02-28 [facility] [id number] 15:24:00 15:24:00 t [facility] ent Clinics 2019-02-28 2019-02-28 [facility] [id number] 11:00:00 11:00:00 t [facility] ent Clinics 2018-11-29 2018-11-29 [facility] [id number] 10:00:00 10:00:00 t [facility] Outpati ent Clinics 2018-10-25 2018-10-25 [facility] [id number] 11:06:00 11:06:00 [facility] Outpati ent Clinics 2018-07-28 2018-07-28 [facility] [id number] [facility] [address] 11:23:00 11:23:00 [facility] 2018-07-25 2018-07-25 Outpatient Effie Elise [id number] [facility] [address] 09:30:00 09:30:00 [facility] 2018-06-03 2018-06-03 Outpatient Effie Elise [id number] [facility] [address] 10:30:00 10:30:00 [facility] ent Clinics Results This patient has no known results.
--- OUTSIDE RECORDS SUMMARY | 2020-09-06 10:03 | XMS REPORT ---
:1965 Author Organization [employer] Care Team Providers Name Role Phone Ana Maria Gallegos Provider Role Unavailable Allergies No Known Allergies Problems Problem Type Condition Code Onset Dates Condition Statu s Problem Hypertension I10 Active Problem Piriformis syndrome of right side G57.01 Active Problem Morbid obesity E66.01 Active Problem Acquired hypothyroidism E03.9 Acti ve Problem Encounter for general adult medical Z00.01 Active examination with abnormal findings Problem Kidney cysts Q61.00 Active Problem Cough R05 Active Problem Bronchitis J40 Active Problem Fatigue, unspecified type R53.83 Ac tive Problem Rhonchi R09.89 Active Medications No Known Medications Results No Known Results Summary Purpose eClinicalWorks Submission
--- OUTSIDE RECORDS SUMMARY | 2020-09-06 10:03 | XMS REPORT ---
:1965 Author Organization [employer] Care Team Providers Name Role Phone Kelsea Luz Provider Role Unavailable Allergies, Adverse Reactions, Alerts Substance Reaction Event Type MORPHINE Info Not Available Drug Allergy Problems Problem Type Condition Code Onset Dates Condition Statu s Problem Hypertension I10 Active Problem Piriformis syndrome of right side G57.01 Active Problem Morbid obesity E66.01 Active Assessment Hydronephrosis N13.30 Active Assessment Kidney cysts Q61.00 Active Problem Acquired hypothyroidism E03.9 Acti ve Problem Encounter for general adult medical Z00.01 Active examination with abnormal findings Problem Kidney cysts Q61.00 Active Problem Cough R05 Active Problem Bronchitis J40 Active Problem Fatigue, unspecified type R53.83 Ac tive Problem Rhonchi R09.89 Active Medications Medication Code Code Instructions Start End Status Dosage System Date Date Colestipol HCl [facility] 90369819730 1 GM Orally Active 1 tablet Twice a day Multivitamin [facility] 84710-59717 Active not defined Levothyroxine [facility] 04938273588 25 MCG Orally Dec 15, Active 1 tablet Sodium Once a day 2019 in the morning on an empty stomach Calcium Citrate [facility] [address]98-[address]687 Active not defined Vitamin D-3 [facility] [address]-91 Active not defined ProAir HFA [facility] 08021213075 108 (90 Base) Jun 22, Active 2 p uffs MCG/ACT 2019 as needed Inhalation every 6 hrs Vitamin B-12 [facility] [address]31-[address] Active not defined Results No Known Results Summary Purpose eClinicalWorks Submission
--- OUTSIDE RECORDS SUMMARY | 2020-09-06 10:03 | XMS REPORT ---
:1965 Author Organization [facility] Address [address] [place] [address] Care Team Providers Name Role Phone Rosy Unavailable [phone] PROBLEMS Type Condition ICD9-CM [id number] Onset Condition SNOMED Code Notes Code Code Dates Status Problem Morbid obesity E66.01 Active 876633910 Problem Piriformis G57.01 Active 864644284096439 syndrome of right side Problem Bronchitis J40 Active 06574872 Problem Acquired E03.9 Active 495881177 hypothyroidism Problem Hypertension I10 Active 84458147 Problem Kidney cysts Q61.00 Active 61622450 Problem Cough R05 Active 70722284 Problem Rhonchi R09.89 Active 72297407 Problem Fatigue, R53.83 Active 28680574 unspecified type Problem Encounter for Z00.01 Active 030654375 general adult medical examination with abnormal findings ALLERGIES Allergen (clinical drug Drug/Non Drug Allergy Reaction Allergy Type Onset Date Status ingredient) documented on EMR morphine MORPHINE Unknown Drug Allergy Active ENCOUNTERS from 1965 to 2020-09-01 Encounter Location Date Provider Diagnosis [facility] [address] Aug, 2020 Ana Maria Fournierok Poison dayne L23.7 [facility] [place], [place] Itching L29.9 [id number] IMMUNIZATIONS Vaccine Route Administration Date Status Kenalog (Triamcinolone) IM Intramuscular Aug 21, 2020 Adminis tered Dexamethasone IM Intramuscular Aug 21, 2020 Administered SOCIAL HISTORY Tobacco Use: Social History Observation Description Date Details (start date - stop date) Never Smoker Sex Assigned At : Social History Observation Description Sex Assigned At Unknown Alcohol Screen Question Answer Notes Did you have a drink containing alcohol in the past year? No Points 0 Interpretation Negative Tobacco Use/Smoking Question Answer Notes Are you a never smoker REASON FOR REFERRAL No Information VITAL SIGNS Height 64 in Aug, Weight 253.6 lbs Aug, Temperature 98.1 degrees Fahrenheit Aug, BMI 43.53 kg/m2 Aug, Oximetry 96 % Aug, Respiratory Rate 16 /min Aug, Blood pressure systolic 139 mm Hg Aug, Blood pressure diastolic 45 mm Hg Aug, MEDICATIONS Medication SIG (Take, Route, Start Date End Date Status Frequency, Duration) Vitamin D-3 Active Calcium Citrate Active ProAir HFA 108 (90 Base) 2 puffs as needed Jun, Not-Taking MCG/ACT Inhalation every 6 hrs for 30 days Colestipol HCl 1 GM 1 tablet Orally Twice a Active day Multivitamin Active Levothyroxine Sodium 25 MCG 1 tablet in the morning Active on an empty stomach Orally Once a day for 90 Vitamin B-12 Active PROCEDURES No Information RESULTS No Results REASON FOR VISIT poison dayne ([phone]) MEDICAL (GENERAL) HISTORY Type Description Date Medical History Morbid obesity Medical History Hypertension Surgical History T&A Surgical History Gastric sleeve Surgical History Gall bladder Surgical History Uterine Ablation Surgical History Knee replacement-R., total Goals Section No Information Health Concerns No Information MEDICAL EQUIPMENT No Information MENTAL STATUS No Information FUNCTIONAL STATUS No Information ASSESSMENTS Encounter Date Diagnosis Notes Aug, Itching (ICD-10 - L29.9) Aug, Poison dayne (ICD-10 - L23.7) PLAN OF TREATMENT Treatment Notes Assessment Notes Clinical Notes Poison dayne clean skin daily with Catalina dishsoap Itching benadryl at nightpepcid AC during the da y Next Appt Details prn Reason: Insurance Providers Payer Name Payer Payer Insured Patient Coverage Coverage End Address Phone Name Relationship to Start Date Brody e Insured [employer] [phone] LudybarrygregoriolouisAlma self [address] [facility] [id number] [place] [address]
[2020-09-06] MEDS ORDERED: TRAMADOL HCL 50 MG TAB ONE (11:05)
--- NOTE | 2020-09-06 11:08 | RAD REPORT ---
EXAM DESCRIPTION: RAD - Shoulder Left 2 View - 09/06/2020 10:59 am CLINICAL HISTORY: PAIN COMPARISON: No comparisons FINDINGS: Mild AC joint degenerative changes are present. No acute fracture or dislocation is seen.
--- NOTE | 2020-09-06 11:44 | ER ---
Nurse's Notes [facility] Name: Marjorie Vega Age: 55 yrs Sex: Female : 1965 Arrival Date: 09/06/2020 Time: 10:06 Bed 5 Private MD: Diagnosis: AC Separation Presentation: 09/06 10:08 Chief complaint: Patient states: L arm/ shoulder pain after falling from a standing ss position 1 week ago. Coronavirus screen: Client denies travel out of the [place] in the last 14 days. Ebola Screen: Patient denies exposure to infectious person. Patient denies travel to an Ebola-affected area in the 21 days before illness onset. Initial Sepsis Screen: Does the patient meet any 2 criteria? No. Patient's initial sepsis screen is negative. Does the patient have a suspected source of infection? No. Patient's initial sepsis screen is negative. Risk Assessment: Do you want to hurt yourself or someone else? Patient reports no desire to harm self or others. Onset of symptoms was September 02, 2020. 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 - Social history:: Smoking status: Patient denies any tobacco usage or history of. Screenin:12 Abuse screen: Denies threats or abuse. Nutritional screening: No deficits noted. em Tuberculosis screening: No symptoms or risk factors identified. Fall Risk None identified. Assessment: 10:30 General: Appears in no apparent distress. Behavior is calm, cooperative. Pain: Pain hb currently is 7 out of 10 on a pain scale. Neuro: Level of Consciousness is awake, alert, obeys commands, Oriented to person, place, time, situation. Cardiovascular: Capillary refill < 3 seconds Patient's skin is warm and dry. Respiratory: Respiratory effort is even, unlabored, Respiratory pattern is regular, symmetrical. GI: No signs and/or symptoms were reported involving the gastrointestinal system. : No signs and/or symptoms were reported regarding the genitourinary system. EENT: No signs and/or symptoms were reported regarding the EENT system. Derm: Skin is pink, warm \T\ dry. Musculoskeletal: Reports left shoulder and arm pain. 11:30 Reassessment: Patient appears in no apparent distress at this time. Patient and/or hb family updated on plan of care and expected duration. Pain level reassessed. Patient is alert, oriented x 3, equal unlabored respirations, skin warm/dry/pink. Vital Signs: 10:08 BP 152 / 81; Pulse 78; Resp 16; Temp 97.6(TE); Pulse Ox 98% on R/A; Weight 113.4 kg; ss Height 5 ft. 4 in. (162.56 cm); Pain 7/10; 10:08 Body Mass Index 42.91 (113.40 kg, 162.56 cm) ED Course: 10:06 Patient arrived in ED. bp1 10:10 Triage completed. ss 10:11 Juan Miller MD is Attending Physician. kdr 10:11 Steven Chen, RN is Primary Nurse. em 10:11 Arm band placed on right wrist. ss 10:12 Patient has correct armband on for positive identification. Bed in low position. Call em light in reach. 11:00 Shoulder Left (2 View) XRAY In Process Unspecified. EDMS 11:44 No provider procedures requiring assistance completed. Patient did not have IV access em during this emergency room visit. 11:48 Sling applied to left arm. dh3 Administered Medications: 10:56 Drug: traMADol 50 mg Route: PO; hb 11:52 Follow up: Response: No adverse reaction; Marked relief of symptoms em Outcome: 11:43 Discharge ordered by . kdr 11:44 Discharged to home ambulatory, with family. em 11:44 Condition: good 11:44 Discharge instructions given to patient, family, Instructed on discharge instructions, follow up and referral plans. no drinking with medication, no driving heavy equipment, medication usage, Demonstrated understanding of instructions, follow-up care, medications, Prescriptions given X 2. 11:56 Patient left the ED. em Signatures: Dispatcher [employer] Juan Dinh MD MD kdr Munoz, Edgar, RN RN em Smirch, Shelby, RN RN ss Baxter, Heather, RN RN [place]ron, [place] [address] [address] [facility]
--- NOTE | 2020-09-06 11:44 | EDPHYS ---
Physician Documentation [facility] Name: Marjorie Vega Age: 55 yrs Sex: Female : 1965 Arrival Date: 09/06/2020 Time: 10:06 Bed 5 Private MD: ED Physician Juan Miller HPI: 09/06 18:02 This 55 yrs old Female presents to ER via Ambulatory with complaints of Arm kdr Injury, Shoulder Pain. 18:02 The patient or guardian complains of decreased range of motion, injury, pain, that is kdr acute. The complaints affect the anterior aspect of left shoulder. Context: The problem was sustained at home, resulted from a fall, on an outstretched hand, while walking. Onset: The symptoms/episode began/occurred suddenly, 1 week(s) ago. Treatment prior to arrival includes: over the counter medications. Modifying factors: The symptoms are alleviated by nothing. the symptoms are aggravated by movement, lifting weight. Associated signs and symptoms: The patient has no apparent associated signs or symptoms. Severity of symptoms: At their worst the symptoms were mild, moderate, just prior to arrival, in the emergency department the symptoms are unchanged. The patient has not experienced similar symptoms in the past. The patient has not recently seen a physician. 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 - Social history:: Smoking status: Patient denies any tobacco usage or history of. ROS: 18:02 Constitutional: Negative for fever, chills, and weight loss, Eyes: Negative for injury, kdr pain, redness, and discharge, Neck: Negative for injury, pain, and swelling, Cardiovascular: Negative for chest pain, palpitations, and edema, Respiratory: Negative for shortness of breath, cough, wheezing, and pleuritic chest pain, Abdomen/GI: Negative for abdominal pain, nausea, vomiting, diarrhea, and constipation, Back: Negative for injury and pain, : Negative for injury, bleeding, discharge, and swelling, Skin: Negative for injury, rash, and discoloration, Neuro: Negative for headache, weakness, numbness, tingling, and seizure activity. Psych: Negative for depression, anxiety, suicide ideation, homicidal ideation, and hallucinations, Allergy/Immunology: Negative for hives, rash, and allergies, Endocrine: Negative for neck swelling, polydipsia, polyuria, polyphagia, and marked weight changes, Hematologic/Lymphatic: Negative for swollen nodes, abnormal bleeding, and unusual bruising. 18:02 MS/extremity: Positive for injury or acute deformity, decreased range of motion, pain, of the left lateral posterior chest and anterior aspect of left shoulder. Exam: 18:02 Constitutional: This is a well developed, well nourished patient who is awake, alert, kdr and in no acute distress. Head/Face: Normocephalic, atraumatic. Eyes: Pupils equal round and reactive to light, extra-ocular motions intact. Lids and lashes normal. Conjunctiva and sclera are non-icteric and not injected. Cornea within normal limits. Periorbital areas with no swelling, redness, or edema. MS/ Extremity: Pulses equal, no cyanosis. Neurovascular intact. Full, normal range of motion. Vital Signs: 10:08 BP 152 / 81; Pulse 78; Resp 16; Temp 97.6(TE); Pulse Ox 98% on R/A; Weight 113.4 kg; ss Height 5 ft. 4 in. (162.56 cm); Pain 7/10; 10:08 Body Mass Index 42.91 (113.40 kg, 162.56 cm) ss MDM: 11:43 Patient medically screened. kdr 18:02 Data reviewed: vital signs, nurses notes, radiologic studies. Counseling: I had a kdr detailed discussion with the patient and/or guardian regarding: the historical points, exam findings, and any diagnostic results supporting the discharge/admit diagnosis, radiology results, the need for outpatient follow up. 09/06 10:31 Order name: Shoulder Left (2 View) XRAY; Complete Time: 11:41 kdr 09/06 10:31 Order name: Marina; Complete Time: 11:48 kdr Administered Medications: 10:56 Drug: traMADol 50 mg Route: PO; hb 11:52 Follow up: Response: No adverse reaction; Marked relief of symptoms em Disposition: 09/06/20 11:43 Discharged to Home. Impression: AC Separation. - Condition is Stable. - Discharge Instructions: Shoulder Separation, Shoulder Pain, [id number]. - Prescriptions for Tylenol- Codeine #3 300-30 mg Oral Tablet - take 2 tablets by ORAL route every 6 hours As needed You may take one or twotablets every 4-6 hours as needed for pain; 16 tablet. Tramadol 50 mg Oral Tablet - take 1 tablet by ORAL route every 8 hours As needed as needed; 16 tablet. - Medication Reconciliation Form, Thank You Letter, Antibiotic Education, Prescription Opioid Use form. - Follow up: Private Physician; When: 2 - 3 days; Reason: If symptoms return, Further diagnostic work-up, Recheck today's complaints, Continuance of care, Re-evaluation by your physician. - Problem is new. - Symptoms are unchanged. Signatures: Dispatcher [employer] EDMS Juan Miller MD MD [facility] Steven Chen RN RN Tamy Traylor RN RN Edita Temple RN RN Corrections: (The following items were deleted from the chart) 11:56 11:43 09/06/2020 11:43 Discharged to Home. Impression: AC Separation. Condition is em Stable. Forms are Medication Reconciliation Form, Thank You Letter, Antibiotic Education, Prescription Opioid Use. Follow up: Private Physician; When: 2 - 3 days; Reason: If symptoms return, Further diagnostic work-up, Recheck today's complaints, Continuance of care, Re-evaluation by your physician. Problem is new. Symptoms are unchanged. kdr
[2020-09-06 12:01] VITALS: BP 152/81; TEMP 97.6; O2SAT 98
== END 2020-09-06 11:56 | disposition home or self-care (01) ==
LOC: ER 10:00
DX: S43.102A Unspecified dislocation of left acromioclavicular joint, initial encounter (principal); W19.XXXA Unspecified fall, initial encounter; Y93.01 Activity, walking, marching and hiking; Y92.009 Unspecified place in unspecified non-institutional (private) residence as the place of occurrence of the external cause; I10 Essential (primary) hypertension; E07.9 Disorder of thyroid, unspecified; Z88.1 Allergy status to other antibiotic agents; Z88.5 Allergy status to narcotic agent; Z91.048 Other nonmedicinal substance allergy status
CPT/HCPCS: 99284

== ENCOUNTER 2020-10-14 15:36 | Emergency (ER) | payer OTHER ==
--- OUTSIDE RECORDS SUMMARY | 2020-10-14 15:44 | XMS REPORT | Summary of Care ---
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 [address] [place] [phone] Exposure to Medicine - [facility], [facility] Fam Pob I SARS-associated [address] [place] [address] coronaviru s ([address] Drive Dx) [place] [address] Allergies Active Allergy Reactions Severity Noted Date Comments Adhesive Tape-Silicones Hives 03/14/2018 Morphine Nausea and/or Vomiting 03/14/2018 documented as of this encounter (statuses as of 10/01/2020) Medications Medication Sig Dispensed Refills Start Date End Date Status multivitamin, Take 1 tablet by 0 Active tx-minerals (COMPLETE mouth daily. MULTIVITAMIN) tablet calcium Take 2 tablets by 0 Ac tive carbonate-vitamin D3 mouth 2 (two) 1,000 mg(2,500 mg)-800 times daily. unit Tab ferrous sulfate (IRON) Take 325 mg by 0 Active 325 mg (65 mg iron) mouth 2 (two) tablet times per week. cholecalciferol, Take 1 tablet by 0 Active vitamin D3, 50,000 unit mouth weekly. tablet cyanocobalamin, vitamin Take 1 tablet by 0 Active B-12, 5,000 mcg TbDL mouth daily. LACTOBACILLUS Take 1 tablet by 0 Active ACIDOPHILUS (PROBIOTIC mouth daily. ORAL) levothyroxine 25 mcg TK 1 T PO QD IN 0 07/15/2020 Active tablet THE MORNING OES traMADoL 50 mg tablet TK 1 T PO Q 8 H 0 09/06/2020 Active PRN FOR PAIN acetaminophen-codeine TK 1 OR 2 TS PO 0 09/06/2020 Active 300-30 mg tablet Q 4 TO 6 H PRN FOR PAIN documented as of this encounter (statuses as of 10/01/2020) Active Problems No known active problemsdocumented as of this encounter (statuses as of 10/01/2020) Social History Tobacco Use Types Packs/Day Years Used Date Never Smoker Smokeless Tobacco: Never Used Alcohol Use Drinks/Week oz/Week Comments No Sex Assigned at Date Recorded Not on file COVID-19 Exposure Response Date Recorded In the last month, have you been in contact with No / Unsure 10/01/2020 9:53 AM OBIEE ARCHITECT someone who was confirmed or suspected to have Coronavirus / COVID-19? documented as of this encounter Last Filed Vital Signs Not on filedocumented in this encounter Nursing Notes Emilia Stanley MA - 10/01/2020 10:20 AM Kaitlynn Vega is a 55 year old female here for COVID Screening with a Nasopharyngeal Swab All droplet and contact precautions taken with appropriate PPE worn while interacting with patient. ? Goggles ? N95 Mask ? Gloves ? Gown RR: 18 Pulse: 96 O2: 99% Patient educated on plan of care for visit, swabbing technique, risks and benefits of test and length of time to receive results. Verbal consent obtained to perform test. CDC Fact Sheet for Patients nCoV Diagnostic Panel dated 01/28/2020 and Factsheet What to Do if Sick with COVID 19 01/08/20 provided. Patient swabbed per appropriate nasopharyngeal technique, and patient tolerated well. Patient was discharged from the testing clinic in stable condition. EMILIA STANLEY MA 10/01/2020 9:54 AM E ARCHITECT documented in this encounter Plan of Treatment Name Type Priority Associated Diagnoses Order S chedule COVID-19 (MOLECULAR LAB Routine Exposure to Expected : 10/01/2020, TESTING SARS-associated Expires: 021 NUCLEIC ACID coronavirus AMPLIFICATION) Health Maintenance Due Date Last Done Comments HEPATITIS C (HCV) SCREEN 1965 Depression Screening 1976 DTaP,Tdap,and Td Vaccines (1 - 1983 Tdap) PAP SMEAR 1985 Breast Cancer Screening 2004 (MAMMOGRAM) COLON CANCER SCREENING ANNUAL 2014 FIT/FOBT COLON CANCER SCREENING FIT DNA 2014 EVERY 3 YEARS COLON CANCER SCREENING 2014 SIGMOIDOSCOPY EVERY 5 YEARS Zoster Recombinant Vaccine 2014 (SHINGRIX) (1 of 2) INFLUENZA VACCINE (#1) 2020 COLONOSCOPY 03/16/2028 03/16/2018 Colorectal Cancer Screening 03/16/2028 PNEUMOCOCCAL 0-64 YEARS COMBINED Aged Out No longer eligible based on SERIES patient's age to complete this topic documented as of this encounter Results Not on filedocumented in this encounter Visit Diagnoses Diagnosis Exposure to SARS-associated coronavirus - Primary documented in this encounter Additional Health Concerns Infection Onset Date Last Indicated Resolved Time COVID-19 Rule Out 10/01/2020 10/01/2020 documented as of this encounter Insurance Payer Benefit Plan / Subscriber ID Effective Dates Phone Addre ss Type Group MEDI-SHARE MEDI-SHARE [id number] 2014-Present Medicare Supplement [phone] [id number] (Work) documented as of this encounter
--- OUTSIDE RECORDS SUMMARY | 2020-10-14 15:44 | XMS REPORT | Summary of Care ---
:1965 Author Organization [facility] Address [address] [place] [id number] Care Team Providers Name Role Phone Zayda Gallegos Primary Care Provider Reason for Visit Radiology Services (Routine) Status Reason Specialty Diagnoses / Referred By Referred To Procedures Contact Contact New Request Diagnostic Diagnoses Acute pain of both knees Joseph Cm, Radiology Procedures XR KNEE 3 VW BILATERAL PAC [address] [place] [address] Encounter Details Date Type Department Care Team Description 09/12/2020 Hospital Encounter [facility] Joseph Cm , [facility] - PAC Radiology [address] [place] [phone] Allergies Active Allergy Reactions Severity Noted Date Comments Adhesive Tape-Silicones Hives 03/14/2018 Morphine Nausea and/or Vomiting 03/14/2018 documented as of this encounter (statuses as of 09/13/2020) Medications Medication Sig Dispensed Refills Start Date [...] as of this encounter (statuses as of 09/13/2020) Active Problems No known active problemsdocumented as of this encounter (statuses as of 09/13/2020) Social History Tobacco Use Types Packs/Day Years Used Date Never Smoker Smokeless Tobacco: Never Used Alcohol Use Drinks/Week oz/Week Comments No Sex Assigned at Date Recorded Not on file COVID-19 Exposure Response Date Recorded In the last month, have you been in contact with No / Unsure 09/12/2020 10:08 AM CDT someone who was confirmed or suspected to have Coronavirus / COVID-19? documented as of this encounter Last Filed Vital Signs Not on filedocumented in this encounter Plan of Treatment Health Maintenance Due Date Last Done Comments HEPATITIS C (HCV) SCREEN 1965 Depression Screening 1976 DTaP,Tdap,and Td Vaccines ( - 1983 Tdap) PAP SMEAR 1985 Breast [...] this topic documented as of this encounter Procedures Procedure Name Priority Date/Time Associated Diagnosis Comme nts XR KNEE 3 VW Routine 09/12/2020 11:06 AM Acute pain of both Re sults for this BILATERAL CDT knees procedure are i n the results section. documented in this encounter Results XR KNEE 3 VW BILATERAL (09/12/2020 11:06 AM CDT) Specimen Narrative Performed At This result has an attachment that is no t available. On the anterior flange of her femur there is a space but this appears to PACS be old there is also some settling of the tibial prost hesis on the anterior aspect but that does not appear acute either she has an osteophyte on the inferior portion of her patella whic h is consistent with a area where I palpated the defect and where she has t enderness there are no signs of acute fracture or dislocation. Performing Organization Address City/State/Zipcode Phone Number PACS documented in this encounter Visit Diagnoses Diagnosis Acute pain of both knees documented in this encounter Insurance Payer Benefit Plan / Subscriber ID Effective Dates Phone Addre ss Type Group MEDI-SHARE MEDI-SHARE [id number] 2014-Present Medicare Supplement 1 [phone] (Home) [place], [place] [phone] [id number] (Work) documented as of this encounter
--- OUTSIDE RECORDS SUMMARY | 2020-10-14 15:44 | XMS REPORT | Continuity of Care Document ---
:1965 Author Organization [facility] t Address [address] [place] [address] Care Team Providers Name Role Phone Flori VALDIVIA, H Attending Clinician Lab, Fam Pob I Attending Clinician Unavailable Doctor Unassigned, Name Attending Clinician Unavailable William White Attending Clinician Problems This patient has no known problems. Allergies, Adverse Reactions, Alerts Allergy Allergy Status Severity Reaction(s) Onset Inactive Treating Comm ents Source Name Type Date Date Clinician MORPHINE Adverse Active Info Not [facility] Reaction Available [facility] ent [facility] Medications Ordered Filled Start Stop Current Ordering Indication Dosage Frequency Signature Comments Components Source Medication Medication Date Date Medication? Clinician (SIG) Name Name Levothyroxi Levothyroxi Yes Luz [address] [facility] ne Sodium ne Sodium 1-31 [facility] ProAir HFA ProAir HFA Yes Luz [address] [facility] 8-08 [facility] needed [facility] ent Clinics Colestipol Colestipol Yes Luz [address] [facility] HCl HCl [place] [facility] Multivitami Multivitami Yes Luz not [facility] n n [place] [facility] Calcium Calcium Yes Luz not [facility] Citrate Citrate [place] defined [facility] Vitamin D-3 Vitamin D-3 Yes Luz not [facility] [facility] Vitamin Vitamin Yes Luz not [facility] B-12 B-12 [place] [facility] Procedures This patient has no known procedures. Encounters Start End Encounter Admission Attending Care Care Encounter Source Date/Time Date/Time Type Type Clinicians Facility Department ID 2020-10-13 2020-10-13 Telephone FloriMARIBEL [id number] 00:00:00 00:00:00 Josh ELDERY [id number] [place] [id number] 2020-10-12 2020-10-12 Laboratory Lab, [facility] [id number] 11:27:30 11:47:30 Only Fam Pob I Health [id number] [place] [id number] Professio [id number] nal 0[address] 2020-10-12 2020-10-12 Letter Doctor MARIBEL [id number] 00:00:00 00:00:00 (Out) Unassigned, CIRILO [id number] [place] [facility] [id number] 2020-10-01 2020-10-01 Laboratory Lab, [facility] [id number] 09:45:43 10:05:43 Only Fam Pob I Health [id number] [place] [id number] Professio [phone] nal 044 Office [address] 2020-09-12 2020-09-12 [facility] [id number] 11:06:25 23:59:00 [facility]counter [facility] [id number] Surgical [id number] Specialti [id number] es 809 [place] 2020-09-12 2020-09-12 Office [facility] [id number] 10:02:26 11:39:21 Visit [place] [id number] Surgical [id number] Specialti [id number] es [address] [place] 2020-08-21 2020-08-21 Outpatient [facility] [id number] [facility] 2020-07-24 2020-07-24 [facility] [id number] [facility] 12:35:00 12:35:00 t Specialty/U [facility] Specialty rology [facility] /Urology Clinic l Clinic Outpati ent Clinics 2020-07-09 2020-07-09 [facility] [id number] [facility] 08:30:00 08:30:00 t Specialty/U [facility] - Specialty rology Memori a /Urology Clinic l Clinic Outpati ent Clinics 2020-04-16 2020-04-16 [facility] [id number] [facility] 10:06:00 10:06:00 t [facility] Medicine l Medicine Outpati ent Clinics 2019-12-20 2019-12-20 [facility] [id number] [facility] 17:37:00 17:37:00 t [facility] Medicine l Medicine Outpati ent Clinics 2019-12-15 2019-12-15 [facility] [id number] [facility] 16:19:00 16:19:00 t [facility] Medicine l Medicine Outpati ent Clinics 2019-12-13 2019-12-13 [facility] [id number] 08:00:00 08:00:00 t [facility] Medicine l Medicine Outpati ent Clinics 2019-07-19 2019-07-19 [facility] [id number] [address] 09:29:00 09:29:00 t [facility] Medicine Medicine Outpati ent Clinics 2019-06-22 2019-06-22 [facility] [id number] 11[facility]40:00 11:40:00 t [facility] Medicine Outpati ent Clinics 2019-05-19 2019-05-19 [facility] [id number] 15:59:00 15:59:00 t [facility] Medicine Outpati ent Clinics 2019-02-28 2019-02-28 [facility] [id number] [facility] 15:24:00 15:24:00 [facility] ent Clinics 2019-02-28 2019-02-28 [facility] [id number] 11:00:00 11:00:00 [facility] ent Clinics 2018-11-29 2018-11-29 [facility] [id number] [facility] 10:00:00 10:00:00 [facility] Medicine Outpati ent Clinics 2018-10-25 2018-10-25 [facility] [id number] 11:06:00 11:06:00 t [facility] Medicine Outpati ent Clinics 2018-07-28 2018-07-28 [facility] [id number] [facility] 11:23:00 11:23:00 [facility] Medicine Outpati ent Clinics 2018-07-25 2018-07-25 [facility] [id number] 09:30:00 09:30:00 [facility] Medicine Outpati ent Clinics 2018-06-03 2018-06-03 [facility] [id number] [facility] 10:30:00 10:30:00 [facility] Medicine Outpati ent Clinics Results This patient has no known results.
--- OUTSIDE RECORDS SUMMARY | 2020-10-14 15:44 | XMS REPORT | Summary of Care ---
:1965 Author Organization [facility] Address [address] [place] [address] Care Team Providers Name Role Phone Zayda Gallegos Primary Care Provider Reason for Referral Radiology Services (Routine) Status Reason Specialty Diagnoses / Referred By Referred To Procedures Contact Contact New Request Diagnostic Diagnoses Acute pain of both knees Joseph Cm, Radiology Procedures XR KNEE 3 VW BILATERAL PAC [address] [place] [address] Reason for Visit Reason Comments Follow-up NCEP / LT Shoulder Injury Knee Pain rt knee Encounter Details Date Type Department Care Team Description 09/12/2020 Office Visit [facility] Orthopaedic Joseph Cm C ontusion of left shoulder, initial encounter (Primary Dx); Surgery- [place] PAC Acute pain of both knees [address], [address] [place] [place] [address] [place] [address] [place], [place] [phone] [address] Allergies Active Allergy Reactions Severity Noted Date Comments Adhesive Tape-Silicones Hives 03/14/2018 Morphine Nausea and/or Vomiting 03/14/2018 documented as of this encounter (statuses as of 09/12/2020) Medications Medication Sig Dispensed Refills Start Date [...] as of this encounter (statuses as of 09/12/2020) Active Problems No known active problemsdocumented as of this encounter (statuses as of 09/12/2020) Social History Tobacco Use Types Packs/Day Years [...] of this encounter Last Filed Vital Signs Vital Sign Reading Time Taken Comments Blood Pressure 133/75 09/12/2020 10:24 AM CDT Pulse 73 09/12/2020 10:24 AM CDT Temperature - - Respiratory Rate 16 09/12/2020 10:18 AM CDT Oxygen Saturation - - Inhaled Oxygen Concentration - - Weight 113.4 kg (250 lb) 09/12/2020 10:18 AM CDT Height 162.6 cm (5' 4") 09/12/2020 10:18 AM CDT Body Mass Index 42.91 09/12/2020 10:18 AM CDT documented in this encounter Progress Notes Joseph Cm S, PAC - 09/12/2020 10:45 AM CDT Cc: Chief Complaint Patient presents with Follow-up NCEP / LT Shoulder Injury DOI 08/30/20 Injury mechanism walking across the porch and tip of shoe got stuck on nail and patient kevin Vega is a 55 year old female. Here for left shoulder and right knee pain date of injury 08/30/2020. She caught her shoe now and fell on her porch. Her right proximal humerus hit the help of a wagon wheel. Initally she was sore. [facility]was [facility] on 09[facility]06[facility]2020. X-rays wereobtained there, they reported a left shoulder separation placed her in an arm sling. 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 Right kneepain is progressively worsening since her fall. It has not been x-rayed yet. Her pain is 6/10 in intensity. Can get up to 9/10 in intensity with weightbearing. Allergies Marjorie is allergic to adhesive tape-silicones and morphine. Medications Outpatient Medications Prior to Visit Medication Sig Dispense Refill acetaminophen-codeine 300-30 mg tablet TK 1 OR 2 TS PO Q 4 TO 6 H PRN FOR PAIN levothyroxine 25 mcg tablet TK 1 T PO QD IN THE MORNING OES traMADoL 50 mg tablet TK 1 T PO Q 8 H PRN FOR PAIN calcium carbonate-vitamin D3 1,000 mg(2,500 mg)-800 unit Tab Take 2 tablets by mouth 2 (two) times daily. cholecalciferol, vitamin D3, 50,000 unit tablet Take 1 tablet by mouth weekly. cyanocobalamin, vitamin B-12, 5,000 mcg TbDL Take 1 tablet by mouth daily. LACTOBACILLUS ACIDOPHILUS (PROBIOTIC ORAL) Take 1 tablet by mouth daily. multivitamin, tx-minerals (COMPLETE MULTIVITAMIN) tablet Take 1 tablet by mouth daily. ferrous sulfate (IRON) 325 mg (65 mg iron) tablet Take 325 mg by mouth 2 (two) times per week. No facility-administered medications prior to visit. Histories Past Medical History: Diagnosis Date Hemangioma of liver Kidney stones Thyroid disease Past Surgical History: Procedure Laterality Date COLONOSCOPY N/A 03/16/2018 Surgeon: Andreia Garibay MD; [place] [facility] [place]OMETRI[place] LAPAROSCOPIC CHOLECYSTECTOMY LAPAROSCOPIC GASTRIC SLEEVE (SHX) TONSILLECTOMY TOTAL KNEE ARTHROPLASTY Right Social History Socioeconomic History Marital status: Spouse name: Not on file Number of children: Not on file Years of education: Not on file Highest education level: Not on file Occupational History Not on file Social Needs Financial resource strain: Not on file Food insecurity Worry: Not on file Inability: Not on file Transportation needs Medical: Not on file Non-medical: Not on file Tobacco Use Smoking status: Never Smoker Smokeless tobacco: Never Used Substance and Sexual Activity Alcohol use: No Drug use: No Sexual activity: Yes Partners: Male control/protection: None Lifestyle Physical activity Days per week: Not on file Minutes per session: Not on file Stress: Not on file Relationships Social connections Talks on phone: Not on file Gets together: Not on file Attends sikhism service: Not on file Active member of club or organization: Not on file Attends meetings of clubs or organizations: Not on file Relationship status: Not on file Intimate partner violence Fear of current or ex partner: Not on file Emotionally abused: Not on file Physically abused: Not on file Forced sexual activity: Not on file Other Topics Concern Not on file Social History Narrative Lives with Family History Problem Relation Age of Onset Lung Cancer Mother Heart Father Diabetes Father Review of Systems Constitutional: Negative. HENT: Negative. Eyes: Negative. Respiratory: Negative. Breasts: Negative. Gastrointestinal: Negative. Genitourinary: Negative. Musculoskeletal: Positive for joint swelling. Skin: Negative. Neurological: Negative. Psychiatric/Behavioral: Negative. Endocrine: Endocrine negative Vital Signs There were no vitals taken for this visit. Physical Exam Musculoskeletal: Comments: Physical Exam Constitutional: oriented to person, place, and time. appears well-developed and well-nourished. HENT: Head: Normocephalic and atraumatic. Right Ear: External ear normal. Left Ear: External ear normal. Eyes: Conjunctivae are normal. Neck: Normal range of motion. No strabismus Neck supple. Cardiovascular: Normal rate and regular rhythm. Pulmonary/Chest: Normal respiratory rate equal chest rise and fall in no apparent distress Abdominal: Abdomen nondistended nontender Neurological: alert and oriented to person, place, and time. No asymmetry Skin: Skin is warm and dry. Psychiatric: normal mood and affect. behavior is normal. Judgment and thought content normal. Nursing note and vitals reviewed. She has pain at the deltoid insertion of the humerus in her proximal humerus with range of motion iswhere she made direct contact and there appears to be contusion here actively she can abduct 70 before she has pain in that location she has a negative [place] impingement test or Neer. Her acromioclavicular joint has only a slight discomfort consistent with her degenerative changes. Right knee she has a well-healed anterior incision there is an area of ecchymosis over her proximal tibia that's approximately a 6 cm x 3 cm in the midline. She is point tender to the distal pole of her patella there appears to be a palpable defect in the area of her point tenderness she has an overall stable ligamentous exam for status post total knee of the rest of her knee nontender to palpation of medial and lateral tibial plateau as well as medial lateral femoral condyle. X-rays reviewed from [facility] left shoulder 2 views obtained on 09/06/2020 findings: Mild before meals joint degenerative changes present. No acute fracture or dislocation is seen. Dictated by Dr. Bueno X-rays reviewed concur with radiologist report I see no sign of fracture or dislocation glenohumeraljoint well maintained there are degenerative changes in the acromioclavicular joint but no sign of joint separation. Assessment/Plan She has a contusion of her left proximal humerus as well as her right patella status post total knee replacement with recent osteophyte she can use her arm sling as needed for pain control she can tryrest ice. He has Tylenol and tramadol from the hospital she's had a gastric sleeve in the past and can't take anti-inflammatories. If this is not resolved with conservative management in 2 weeks she can follow- up for reevaluation. documented in this encounter Plan of Treatment Health [...] topic documented as of this encounter Results XR KNEE 3 VW [...] documented in this encounter Visit Diagnoses Diagnosis Contusion of left shoulder, initial enco unter - Primary Acute pain of both knees documented in this encounter Insurance Payer Benefit Plan / Subscriber ID Effective Dates Phone Addre ss Type Group MEDI-SHARE MEDI-SHARE [id number] 2014-Present Medicare Supplement [phone] [id number] (Work) documented as of this encounter
--- OUTSIDE RECORDS SUMMARY | 2020-10-14 15:44 | XMS REPORT | Summary of Care ---
:1965 Author Organization [facility] Address [address] [place] [address] Care Team Providers Name Role Phone Zayda Gallegos Primary Care Provider Reason for Referral Radiology Services (Routine) Status Reason Specialty Diagnoses / Referred By Referred To Procedures Contact Contact New Request Diagnostic Diagnoses Acute pain of both knees Joseph Cm, Radiology Procedures XR KNEE 3 VW BILATERAL PAC [address] [place] [address] Reason for Visit Reason Comments Follow-up NCEP / LT Shoulder Injury Knee Pain rt knee Encounter Details Date Type Department Care Team Description 09/12/2020 Office Visit [facility] Orthopaedic Joseph Cm C ontusion of left shoulder, initial encounter (Primary Dx); Surgery- [place] PAC Acute pain of both knees [address], [address] [place] [address] [place] [address] [place], [place] [phone] [address] Allergies Active Allergy Reactions Severity Noted [...] Hewas [facility] in the [facility] on [facility]2020. X-rays wereobtained there, they reported a left shoulder separation placed her in an arm sling. 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 Right kneepain is progressively [...] N/A 03/16/2018 Surgeon: Andreia Garibay MD; Location: [facility] ENDOMETRIAL ABLATION LAPAROSCOPIC CHOLECYSTECTOMY LAPAROSCOPIC GASTRIC SLEEVE [...] file Gets together: Not on file Attends baptist service: Not on file Active member of [...] medial lateral femoral condyle. X-rays reviewed from [facility] left shoulder 2 views obtained on 09/06/2020 findings: Mild before meals joint degenerative changes present. No acute fracture or dislocation is seen. Dictated by Dr. Bueno X-rays reviewed concur with radiologist report I see no sign of fracture or dislocation glenohumeraljoint well maintained there are degenerative changes in the acromioclavicular joint but no sign of joint separation. Assessment/Plan documented in this encounter Plan of Treatment [...] Phone Addre ss Type Group MEDI-SHARE MEDI-SHARE [id number] 2014-Present Medicare Supplement [phone] (Home) [place], [place] [phone] (Work) documented as of this encounter
--- OUTSIDE RECORDS SUMMARY | 2020-10-14 15:44 | XMS REPORT | Summary of Care ---
:1965 Author Organization [facility] Address [address] [place] [address] Care Team Providers Name Role Phone Zayda Gallegos Primary Care Provider Encounter Details Date Type Department Care Team Description 10/12/2020 Letter (Out) [facility] Baidu Message s Doctor Unassigned, No [address] [facility] [place] [address] [address] [facility] [phone] [place] [address] Allergies Active Allergy Reactions Severity Noted Date Comments Adhesive Tape-Silicones Hives 03/14/2018 Morphine Nausea and/or Vomiting 03/14/2018 documented as of this encounter (statuses as of 10/12/2020) Medications Medication Sig Dispensed Refills Start Date [...] as of this encounter (statuses as of 10/12/2020) Active Problems No known active problemsdocumented as of this encounter (statuses as of 10/12/2020) Social History Tobacco Use Types Packs/Day Years Used Date Never Smoker Smokeless Tobacco: Never Used Alcohol Use Drinks/Week oz/Week Comments No Sex Assigned at Date Recorded Not on file COVID-19 Exposure Response Date Recorded In the last month, have you been in contact with No / Unsure 10/01/2020 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 documented as of this encounter Last Filed Vital Signs Not on filedocumented in this encounter Plan of Treatment Date Type Specialty Care Team Description 10/12/2020 Laboratory Only Family Medicine Cate Arenas, FN P [address] [facility] [address] [place] [address] [phone] Lab, Adc Fam Pob I Health Maintenance Due Date Last Done Comments [...] Results Not on filedocumented in this encounter Insurance Payer Benefit Plan / Subscriber ID Effective Dates Phone Addre ss Type Group [id number] 2014-Present Medicare Supplement documented as of this encounter
--- OUTSIDE RECORDS SUMMARY | 2020-10-14 15:44 | XMS REPORT | Summary of Care ---
:1965 Author Organization [facility] Address [address] [place] [address] Care Team Providers Name Role Phone Zayda Gallegos Primary Care Provider Reason for Referral Radiology Services (Routine) Status Reason Specialty Diagnoses / Referred By Referred To Procedures Contact Contact New Request Diagnostic Diagnoses Acute pain of both knees Joseph Cm, Radiology Procedures XR KNEE 3 VW BILATERAL PAC [address] [place] [address] Reason for Visit Reason Comments Follow-up NCEP / LT Shoulder Injury Knee Pain rt knee Encounter Details Date Type Department Care Team Description 09/12/2020 Office Visit [facility] Orthopaedic Joseph Cm C ontusion of left shoulder, initial encounter (Primary Dx); Surgery- [place] PAC Acute pain of both knees [address], [address] [place] [address] [place] [address] [place], [place] [phone] [address] Allergies Active Allergy Reactions Severity Noted [...] Hewas seen in the emergency department of [facility] on 09[facility]06[facility]2020. X-rays wereobtained there, they reported a left shoulder separation placed her in an arm sling. 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 Right kneepain is progressively [...] N/A 03/16/2018 Surgeon: Andreia Garibay MD; [place] [facility] [place]OMET[place] LAPAROSCOPIC CHOLECYSTECTOMY LAPAROSCOPIC GASTRIC SLEEVE [...] file Gets together: Not on file Attends advent service: Not on file Active member of [...] medial lateral femoral condyle. X-rays reviewed from [facility] left shoulder 2 views obtained [...] Phone Addre ss Type Group MEDI-SHARE MEDI-SHARE [id number] 2014-Present Medicare Supplement [phone] (Home) [place], [place] [phone] (Work) documented as of this encounter
--- OUTSIDE RECORDS SUMMARY | 2020-10-14 15:44 | XMS REPORT ---
:1965 Author Organization [facility] Address [address] [place] [address] Care Team Providers Name Role Phone Rosy Unavailable [phone] PROBLEMS Type Condition ICD9-CM [id number] Onset Condition SNOMED Code Notes Code Code Dates Status Problem Morbid obesity E66.01 Active 759054304 Problem Piriformis G57.01 Active 571509536399839 syndrome of right side Problem Bronchitis J40 Active 37440480 Problem Acquired E03.9 Active 081807107 hypothyroidism Problem Hypertension I10 Active 92223290 Problem Kidney cysts Q61.00 Active 33915065 Problem Cough R05 Active 00368502 Problem Rhonchi R09.89 Active 27341991 Problem Fatigue, R53.83 Active 58873856 unspecified type Problem Encounter for Z00.01 Active 811697021 general adult medical examination with abnormal findings ALLERGIES Allergen (clinical drug Drug/Non Drug Allergy Reaction Allergy Type Onset Date Status ingredient) documented on EMR morphine MORPHINE Unknown Drug Allergy Active ENCOUNTERS from 1965 to 2020-09-01 Encounter Location Date Provider Diagnosis [facility] [address] 07 Aug, 2020 Ana Maria Fournierok Poison dayne L23.7 and [facility] [place], [place] Itching L29.9 [address] IMMUNIZATIONS Vaccine Route Administration Date Status Kenalog [...] No Results REASON FOR VISIT poison dayne ([phone]) MEDICAL (GENERAL) HISTORY Type Description Date Medical [...] MEDI-SHARE [phone] LudybarrygregoriolouisAlma self [address] [facility] 6[address]229 [address] [place] [address]
--- OUTSIDE RECORDS SUMMARY | 2020-10-14 15:45 | XMS REPORT | Summary of Care ---
:1965 Author Organization [facility] Address [address] [place] [address] Care Team Providers Name Role Phone Zayda Gallegos Primary Care Provider Reason for Visit Reason Comments Results Encounter Details Date Type Department Care Team Description 10/13/2020 Telephone [facility] Josh Ruby MD Results [address] [address] [place], [place] [phone] Allergies Active Allergy Reactions Severity Noted Date Comments Adhesive Tape-Silicones Hives 03/14/2018 Morphine Nausea and/or Vomiting 03/14/2018 documented as of this encounter (statuses as of 10/13/2020) Medications Medication Sig Dispensed Refills Start Date [...] as of this encounter (statuses as of 10/13/2020) Active Problems No known active problemsdocumented as of this encounter (statuses as of 10/13/2020) Social History Tobacco Use Types Packs/Day Years Used Date Never Smoker Smokeless Tobacco: Never Used Alcohol Use Drinks/Week oz/Week Comments No Sex Assigned at Date Recorded Not on file COVID-19 Exposure Response Date Recorded In the last month, have you been in contact with No / Unsure 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 documented as of this encounter Last Filed Vital Signs Not on filedocumented in this encounter Miscellaneous Notes Telephone Encounter - Sabina Strong RN - 10/13/2020 8:49 AM CST Results COVID-19 (MOLECULAR TESTING NUCLEIC ACID AMPLIFICATION) (Order [id number]) Patient Release Status: This result is viewable by the patient in [employer]. Last viewed in [employer]: 10/13/2020 7:18 AM By: Marjorie Vega Negative letter sent to [employer]. elephone Encounter - Tony Mazariegos - 10/13/2020 7:05 AM CSTMarjorie Jax Benjaminlouis is a 55 year old female Patient would like to know the results of her COVID test. 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
--- OUTSIDE RECORDS SUMMARY | 2020-10-14 15:45 | XMS REPORT | Summary of Care ---
:1965 Author Organization [facility] Address [address] [place] [address] Care Team Providers Name Role Phone Zayda Gallegos Primary Care Provider Encounter Details Date Type Department Care Team Description 10/12/2020 Laboratory Only [facility] Cate Chopra, ANIKA [address] [facility] [address] [place], [place] [phone] Exposure to Medicine - [facility] Fam Pob I SARS-associated [address] [facility] coronaviru s ([address] Drive Dx) [place] [phone] Allergies Active Allergy Reactions Severity Noted Date [...] with No / Unsure 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 documented as of this encounter Last Filed Vital Signs Not on filedocumented in this encounter Plan of Treatment Name Type Priority Associated Diagnoses Order S chedule COVID-19 (MOLECULAR LAB Routine Exposure to Expected : 10/12/2020, TESTING SARS-associated Expires: 021 NUCLEIC ACID coronavirus [...] Resolved Time COVID-19 Rule Out 10/12/2020 10/12/2020 documented as of this encounter Insurance Payer Benefit Plan / Subscriber ID Effective Dates Phone Addre ss Type Group MEDI-[employer] MEDI-Selphee [id number] 2014-Present Medicare Supplement [phone] [id number] (Work) documented as of this encounter
[2020-10-14 16:26] LABS: Absolute Lymphocytes (CBC) 1.8 K/uL (0.7-4.9); Basophils % 0.7 % (0-1.3); Lymphocytes % 22.1 % (15.3-44.8); MPV 9.1 fL (7.6-11.3); RBC Red Blood Cell Count 4.58 M/uL (3.86-4.86)
[2020-10-14 16:29] LABS: Protime INR 0.88
[2020-10-14 16:44] LABS: ALT/SGPT 36 U/L (12-78); AST/SGOT 20 U/L (15-37); Albumin 3.4 g/dL (3.4-5.0); Alkaline Phosphatase 110 U/L (45-117); BUN Blood Urea Nitrogen 13 mg/dL (7-18); Bicarbonate 27 mmol/L (21-32); Bilirubin Direct < 0.1 mg/dL (0-0.2); Bilirubin Total 0.2 mg/dL (0.2-1.0); C-Reactive Protein 4.66 mg/L (<3.00); Glucose Level 130 mg/dL (74-106); Magnesium 2.2 mg/dL (1.8-2.4); NT PRO-BNP 116 pg/mL (<125); Potassium 3.9 mmol/L (3.5-5.1); Protein, Total 7.4 g/dL (6.4-8.2); Sodium Level 142 mmol/L (136-145); Troponin (Emerg Dept Use Only) < 0.02 ng/mL (0.0-0.045)
--- NOTE | 2020-10-14 17:11 | RAD REPORT ---
EXAM DESCRIPTION: CT - C Spine Wo Con - 10/14/2020 4:50 pm CLINICAL HISTORY: Numbness COMPARISON: None. TECHNIQUE: Computed axial tomography of the cervical spine were obtained with sagittal and coronal r econstruction images generated and reviewed. All CT scans are performed using dose optimization technique as appropriate and may include automated exposure control or mA/KV adjustment according to patient size. FINDINGS: A cervical fracture is not seen. No dislocation Loss of the normal lordosis of the cervical spine. This may be secondary to muscle spasm or positioni ng Mild spondylosis involves the cervical spine. No high-grade central/foraminal stenosis noted IMPRESSION: A cervical fracture is not seen. No high-grade central/foraminal stenosis If the patient continues have symptoms to suggest spinal cord/spinal canal pathology then MRI would b e recommended.
--- NOTE | 2020-10-14 17:29 | EDPHYS ---
Physician Documentation [facility] Name: Marjorie Vega Age: 55 yrs Sex: Female : 1965 Arrival Date: 10/14/2020 Time: 15:39 Bed 6 Private MD: ED Physician Dimitri Mauro HPI: 10/14 16:39 This 55 yrs old Female presents to ER via Ambulatory with complaints of Chest jr8 Pain, Breathing Difficulty. 16:39 Patient stated that she had sudden sharp pain in mid cervical spine that radiated to jr8 the back, shoulders, chest, and then jaw. Described the chest pain as squeezing and then everything else as bruised feeling. Stated that she could hardly be touched in the shoulders or chest region the other day. This seems to have improved somewhat but still having chest pain. Denies history of this or trauma. Denies recent illness as well. Severity of symptoms: At their worst the symptoms were moderate in the emergency department the symptoms are unchanged. The patient has not experienced similar symptoms in the past. The patient has not recently seen a physician. 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 - Social history:: Smoking status: Patient denies any tobacco usage or history of. ROS: 16:39 Eyes: Negative for injury, pain, redness, and discharge, ENT: Negative for injury, jr8 pain, and discharge, Abdomen/GI: Negative for abdominal pain, nausea, vomiting, diarrhea, and constipation, MS/Extremity: Negative for injury and deformity, Skin: Negative for injury, rash, and discoloration, Neuro: Negative for headache, weakness, numbness, tingling, and seizure. 16:39 Neck: Positive for pain with movement, pain at rest, tenderness, bony tenderness. 16:39 Cardiovascular: Positive for chest pain, Negative for edema, orthopnea, palpitations, paroxysmal nocturnal dyspnea. 16:39 Respiratory: Positive for shortness of breath. 16:39 Back: Positive for pain at rest, pain with movement, of the left trapezius and right trapezius. Exam: 16:39 Head/Face: Normocephalic, atraumatic. Eyes: Pupils equal round and reactive to light, jr8 extra-ocular motions intact. Lids and lashes normal. Conjunctiva and sclera are non-icteric and not injected. Cornea within normal limits. Periorbital areas with no swelling, redness, or edema. ENT: Nares patent. No nasal discharge, no septal abnormalities noted. Tympanic membranes are normal and external auditory canals are clear. Oropharynx with no redness, swelling, or masses, exudates, or evidence of obstruction, uvula midline. Mucous membranes moist. Cardiovascular: Regular rate and rhythm with a normal S1 and S2. No gallops, murmurs, or rubs. Normal PMI, no JVD. No pulse deficits. Respiratory: Lungs have equal breath sounds bilaterally, clear to auscultation and percussion. No rales, rhonchi or wheezes noted. No increased work of breathing, no retractions or nasal flaring. Abdomen/GI: Soft, non-tender, with normal bowel sounds. No distension or tympany. No guarding or rebound. No evidence of tenderness throughout. Skin: Warm, dry with normal turgor. Normal color with no rashes, no lesions, and no evidence of cellulitis. MS/ Extremity: Pulses equal, no cyanosis. Neurovascular intact. Full, normal range of motion. Neuro: Awake and alert, GCS 15, oriented to person, place, time, and situation. Cranial nerves II-XII grossly intact. Motor strength 5/5 in all extremities. Sensory grossly intact. Cerebellar exam normal. Normal gait. 16:39 Neck: External neck: tenderness, that is mild, of the left mid cervical area, right mid cervical area, left trapezius and right trapezius, C-spine: vertebral tenderness, is not appreciated, Thyroid: appears normal, Trachea: is midline with no obvious abnormalities, ROM/movement: pain, that is mild, with rotation to the right, Lymph nodes: no appreciated lymphadenopathy. 16:39 Chest/axilla: Inspection: normal, Palpation: tenderness, that is mild, of the anterior aspect of left upper chest, Tenderness along with sides of the sternum as well that reproduces patients pain . 16:39 Back: pain, that is mild, of the left trapezius and right trapezius, ROM is painful, normal spinal alignment noted, vertebral tenderness, is not appreciated. 17:20 ECG was reviewed by the Attending Physician. jr8 Vital Signs: 15:47 BP 160 / 84; Pulse 94; Resp 18; Temp 97.9(TE); Pulse Ox 100% on R/A; Weight 113.4 kg; ss Height 5 ft. 4 in. (162.56 cm); Pain 2/10; 16:23 BP 151 / 71; Pulse 73; Resp 12; Pulse Ox 100% ; sv 17:20 BP 150 / 87; Pulse 71; Resp 16; Pulse Ox 100% on R/A; em 15:47 Body Mass Index 42.91 (113.40 kg, 162.56 cm) ss MDM: 15:45 Patient medically screened. jr8 17:21 Data reviewed: vital signs, nurses notes, lab test result(s), EKG, radiologic studies, jr8 CT scan, plain films. Data interpreted: Pulse oximetry: on room air is 100 %. Interpretation: normal. Counseling: I had a detailed discussion with the patient and/or guardian regarding: the historical points, exam findings, and any diagnostic results supporting the discharge/admit diagnosis, lab results, radiology results, the need for outpatient follow up, a family practitioner, to return to the emergency department if symptoms worsen or persist or if there are any questions or concerns that arise at home. ED course: Discussed with patient that the pain she is experiencing is most like musculoskeletal in nature. Less likely to be ischemic chest pain. Will treat as such. Needs to f/u with PCP. If worse to come back. Patient good with this. 10/14 16:02 Order name: Basic Metabolic Panel; Complete Time: 16:45 10/14 16:02 Order name: CBC with Diff; Complete Time: 16:45 10/14 16:02 Order name: LFT's; Complete Time: 16:45 10/14 16:02 Order name: Magnesium; Complete Time: 16:45 10/14 16:02 Order name: NT PRO-BNP; Complete Time: 16:45 10/14 16:02 Order name: PT-INR; Complete Time: 16:34 10/14 16:02 Order name: Troponin (emerg Dept Use Only); Complete Time: 16:45 10/14 16:02 Order name: XRAY Chest (1 view); Complete Time: 17:58 10/14 16:02 Order name: EKG; Complete Time: 16:03 10/14 16:02 Order name: Cardiac monitoring; Complete Time: 16:17 10/14 16:02 Order name: CRP; Complete Time: 16:10/14 16:02 Order name: ESR; Complete Time: 16:10/14 16:02 Order name: CT C Spine; Complete Time: 17:10/14 16:02 Order name: EKG - Nurse/Tech; Complete Time: 16:10/14 16:02 Order name: IV Saline Lock; Complete Time: 16:10/14 16:02 Order name: Labs collected and sent; Complete Time: 16:10/14 16:02 Order name: O2 Per Protocol; Complete Time: 16:10/14 16:02 Order name: O2 Sat Monitoring; Complete Time: 16: EC:20 Rate is 76 beats/min. Rhythm is regular, Normal Sinus Rhythm. QRS [place] is Normal. CO jr8 interval is normal at 140 msec. QRS interval is normal at 88 msec. QT interval is normal at 438 msec. No Q waves. T waves are Inverted in leads I, aVL. No ST changes noted. Clinical impression: NSR w/ Non-specific ST/T Changes. Interpreted by me. Reviewed by me. Administered Medications: 17:27 Not Given (Physician Discretion): TORadol 30 mg IVP once jr8 Disposition: 18:02 Co-signature as Attending Physician, Dimitri Mauro MD. rn Disposition: 10/14/20 17:28 Discharged to Home. Impression: Other chest pain. - Condition is Stable. - Discharge Instructions: Nonspecific Chest Pain, Chest Wall Pain. - Prescriptions for Medrol (Storm) 4 mg Oral Tablets, Dose Pack - take 1 tablet by ORAL route as directed - follow package instructions; 1 packet. - Medication Reconciliation Form, Thank You Letter, Antibiotic Education, Prescription Opioid Use form. - Follow up: Private Physician; When: 2 - 3 days; Reason: Recheck today's complaints, Continuance of care, Re-evaluation by your physician. - Problem is new. - Symptoms have improved. Signatures: Dispatcher [employer] Steven Stanford RN RN Dimitri Mauro MD MD rn Smirch, Shelby, RN RN David Chou PA PA jr8 Corrections: (The following items were deleted from the chart) 17:58 17:28 10/14/2020 17:28 Discharged to Home. Impression: Other chest pain. Condition is em Stable. Forms are Medication Reconciliation Form, Thank You Letter, Antibiotic Education, Prescription Opioid Use. Follow up: Private Physician; When: 2 - 3 days; Reason: Recheck today's complaints, Continuance of care, Re-evaluation by your physician. Problem is new. Symptoms have improved. jr8
--- NOTE | 2020-10-14 17:29 | ER ---
Nurse's Notes [facility] Name: Marjorie Vega Age: 55 yrs Sex: Female : 1965 Arrival Date: 10/14/2020 Time: 15:39 Bed 6 Private MD: Diagnosis: Other chest pain Presentation: 10/14 15:47 Chief complaint: Patient states: Sent by PCP for further evaluation and treatment of ss SOB and chest/ back discomfort that began 4 days ago. Coronavirus screen: Client denies travel out of the [place] in the last 14 days. Ebola Screen: Patient denies exposure to infectious person. Patient denies travel to an Ebola-affected area in the 21 days before illness onset. Initial Sepsis Screen: Does the patient meet any 2 criteria? Yes Does the patient have a suspected source of infection? No. Patient's initial sepsis screen is negative. Risk Assessment: Do you want to hurt yourself or someone else? Patient reports no desire to harm self or others. Onset of symptoms was October 10, 2020. 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 - Social history:: Smoking status: Patient denies any tobacco usage or history of. Screenin:14 Abuse screen: Denies threats or abuse. Nutritional screening: No deficits noted. em Tuberculosis screening: No symptoms or risk factors identified. Fall Risk None identified. Assessment: 16:10 General: Appears in no apparent distress. comfortable, Behavior is calm, cooperative. em Pain: Complains of pain in chest Pain radiates to anterior aspect of left shoulder Pain currently is 2 out of 10 on a pain scale. Pain began 1 day ago. Neuro: Level of Consciousness is awake, alert, obeys commands, Oriented to person, place, time, situation. Cardiovascular: Capillary refill < 3 seconds Patient's skin is warm and dry. Rhythm is sinus rhythm. Respiratory: Airway is patent Respiratory effort is even, unlabored, Respiratory pattern is regular, symmetrical, Denies cough, shortness of breath. GI: Patient currently denies nausea, vomiting. Derm: Skin is intact, is healthy with good turgor, Skin is pink, warm \T\ dry. Musculoskeletal: Range of motion: intact in all extremities. 16:10 Reassessment: does not want any pain medication at this time, instructed to inform em staff when she feels the need for pain medication. 17:30 Reassessment: Patient appears in no apparent distress at this time. Patient and/or em family updated on plan of care and expected duration. Pain level reassessed. Patient is alert, oriented x 3, equal unlabored respirations, skin warm/dry/pink. Vital Signs: 15:47 BP 160 / 84; Pulse 94; Resp 18; Temp 97.9(TE); Pulse Ox 100% on R/A; Weight 113.4 kg; ss Height 5 ft. 4 in. (162.56 cm); Pain 2/10; 16:23 BP 151 / 71; Pulse 73; Resp 12; Pulse Ox 100% ; sv 17:20 BP 150 / 87; Pulse 71; Resp 16; Pulse Ox 100% on R/A; em 15:47 Body Mass Index 42.91 (113.40 kg, 162.56 cm) ED Course: 15:39 Patient arrived in ED. mr 15:39 David Chou PA is PHCP. jr8 15:39 Dimitri Mauro MD is Attending Physician. jr8 15:41 Steven Chen, TANNA is Primary Nurse. em 15:51 Triage completed. ss 15:52 Arm band placed on right wrist. ss 16:00 EKG done, by ED staff, reviewed by David SUMMERS. 3 16:11 Initial lab(s) drawn, by il, sent to lab. Inserted saline lock: 20 gauge in right dh3 antecubital area, using aseptic technique. Blood collected. 16:14 Patient has correct armband on for positive identification. tower erector helper on. Pulse em ox on. NIBP on. 16:14 Patient maintains SpO2 saturation greater than 95% on room air. em 16:43 X-ray(s) taken. sv 16:51 CT C Spine In Process Unspecified. EDMS 17:04 XRAY Chest (1 view) In Process Unspecified. EDMS 17:56 No provider procedures requiring assistance completed. IV discontinued, intact, em bleeding controlled, No redness/swelling at site. Pressure dressing applied. Administered Medications: 17:27 Not Given (Physician Discretion): TORadol 30 mg IVP once jr8 Outcome: 17:28 Discharge ordered by . jrHardik 17:56 Discharged to home ambulatory. em 17:56 Condition: good 17:56 Discharge instructions given to patient, Instructed on discharge instructions, follow up and referral plans. medication usage, Demonstrated understanding of instructions, follow-up care, medications, Prescriptions given X 1. 17:58 Patient left the ED. em Signatures: Dispatcher [employer] Ambika Dash RN RN sv Rivera, Mary mr Munoz, Edgar, RN RN em Smirch, Shelby, RN RN ss Roszak, Josh, PA PA jr8 Abril Littlejohn 3
--- NOTE | 2020-10-14 17:47 | RAD REPORT ---
EXAM DESCRIPTION: Rogelio Single View10/14/2020 5:03 pm CLINICAL HISTORY: Chest pain COMPARISON: 2017 FINDINGS: The lungs appear clear of acute infiltrate. The heart is normal size IMPRESSION: No acute abnormalities displayed
[2020-10-14 19:52] VITALS: TEMP 97.9; O2SAT 100
[2020-10-14 20:01] VITALS: BP 150/87
--- NOTE | 2020-10-16 06:11 | EKG ---
Test Date: 2020-10-14 Test Time: 15:48:53 Paper Tester: DILLAN MEASUREMENT RESULTS: Intervals: Rate: 76 NE: 140 QRSD: 88 QT: 390 QTc: 438 [place]: P: 37 NE: 140 QRS: 18 T: 86 INTERPRETIVE STATEMENTS: Normal sinus rhythm Nonspecific ST and T wave abnormality Abnormal ECG Compared to ECG 04/10/2016 07:27:15 ST (T wave) deviation now present Sinus bradycardia no longer present Electronically Signed On 10-16-20 06:09:37 TORCH BURNER by Asael Mckoy
== END 2020-10-14 17:58 | disposition home or self-care (01) ==
LOC: ER 15:36
DX: R07.89 Other chest pain (principal); I10 Essential (primary) hypertension; Z88.1 Allergy status to other antibiotic agents; Z88.5 Allergy status to narcotic agent; Z91.048 Other nonmedicinal substance allergy status
CPT/HCPCS: 36415; 71045; 72125; 80048; 80076; 83735; 83880; 84484; 85025; 85610; 85652; 86140; 93005; 99285

== ENCOUNTER 2021-06-25 03:44 | Emergency (ER) | payer OTHER ==
--- OUTSIDE RECORDS SUMMARY | 2021-06-25 04:10 | XMS REPORT | Continuity of Care Document ---
:1965 Author Organization [facility] t Address [address] [place] [address] Care Team Providers Name Role Phone Doctor Unassigned, Name Attending Clinician Unavailable William White Attending Clinician Problems This patient has no known problems. Allergies, Adverse Reactions, Alerts Allergy Allergy Status Severity Reaction(s) Onset Inactive Treating Comm ents Source Name Type Date Date Clinician MORPHINE Adverse Active Info Not [facility] Reaction Available [facility] Clinics Medications Ordered Filled Start Stop Current Ordering Indication Dosage Frequency Signature Comments Components Source Medication Medication Date Date Medication? Clinician (SIG) Name Name Levothyroxi Levothyroxi Yes Luz [address] [facility] ne Sodium ne Sodium 1-31 [place] [facility] ProAir HFA ProAir HFA Yes Luz [address] [facility] 8-08 [place] [facility] Vitamin Vitamin Yes Luz not [facility] B-12 B-12 [place] [facility] Colestipol Colestipol Yes Luz [address] [facility] HCl HCl [place] [facility] Multivitami Multivitami Yes Luz not [facility] n n [place] defined [facility] Calcium Calcium Yes Luz not [facility] Citrate Citrate [place] defined [facility] Vitamin D-3 Vitamin D-3 Yes Luz not [facility] [place] [facility] Procedures This patient has no known procedures. Encounters Start End Encounter Admission Attending Care Care Encounter Source Date/Time Date/Time Type Type Clinicians Facility Department ID 2021-05-12 2021-05-12 Orders Doctor LÓPEZ [id number] 00:00:00 00:00:00 Only Unassigned, [id number] [place] [id number] 2021-04-16 2021-04-16 [facility] [id number] 2021-04-15 2021-04-15 Orders Doctor LÓPEZ [id number] 00:00:00 00:00:00 Only Unassigned, CIRILO [id number] [place] [facility] [id number] 2021-03-13 2021-03-13 Orders Doctor LÓPEZ [id number] 00:00:00 00:00:00 Only Unassigned, CIRILO [id number] [facility] [id number] 2021-02-27 2021-02-27 Office Toi AZVIJAY [id number] 14:47:00 15:02:00 Visit [facility] [id number] Surgical [id number] Specialti [id number] [address] [place] 2021-01-09 2021-01-09 [facility] [id number] [facility] 2020-08-21 2020-08-21 [id number] 2020-07-24 2020-07-24 [facility] [id number] [facility] 12:35:00 12:35:00 t Specialty/[facility] l Clinic Outpati ent Clinics 2020-07-09 2020-07-09 [facility] [id number] [facility] 08:30:00 08:30:00 t Specialty/U [facility] - Specialty rology [facility] /Urology Clinic l Clinic Outpati ent Clinics 2020-04-16 2020-04-16 [facility] [id number] [address] 10:06:00 10:06:00 t [facility] Medicine l Medicine Outpati ent Clinics 2019-12-20 2019-12-20 [facility] [id number] [address] 17[facility]37:00 17:37:00 t [facility] Medicine l Medicine Outpati ent Clinics 2019-12-15 2019-12-15 [facility] [id number] 16:19:00 16:19:00 t [facility] Medicine l Medicine Outpati ent Clinics 2019-12-13 2019-12-13 [facility] [id number] [address] 08:00:00 08:00:00 t [facility] Medicine l Medicine Outpati ent Clinics 2019-07-19 2019-07-19 [facility] [id number] 09:29:00 09:29:00 t [facility] Medicine l Medicine Outpati ent Clinics 2019-06-22 2019-06-22 [facility] [id number] 11:40:00 11:40:00 t [facility] Medicine l Medicine Outpati ent Clinics 2019-05-19 2019-05-19 [facility] [id number] 15:59:00 15:59:00 t [facility] Medicine Outpati ent Clinics 2019-02-28 2019-02-28 [facility] [id number] 15:24:00 15:24:00 [facility] 2019-02-28 2019-02-28 [facility] [id number] 11:00:00 11:00:00 [facility] 2018-11-29 2018-11-29 [facility] [id number] [address] 10:00:00 10:00:00 [facility] 2018-10-25 2018-10-25 [facility] [id number] [address] 11:06:00 11:06:00 [facility] Medicine Outpati ent Clinics 2018-07-28 2018-07-28 [facility] [id number] [facility] 11:23:00 11:23:00 [facility] Medicine Outpati ent Clinics 2018-07-25 2018-07-25 [facility] [id number] 09:30:00 09:30:00 [facility] Medicine Outpati ent Clinics 2018-06-03 2018-06-03 [facility] [id number] [facility] 10:30:00 10:30:00 [facility] Medicine Outpati ent Clinics Results This patient has no known results.
[2021-06-25 05:43] LABS: Absolute Lymphocytes (CBC) 0.6 K/uL (0.7-4.9); Basophils % 0.2 % (0-1.3); Hematocrit 46.2 % (36.0-45.0); Lymphocytes % 4.9 % (15.3-44.8); MPV 9.6 fL (7.6-11.3); RBC Red Blood Cell Count 5.04 M/uL (3.86-4.86)
[2021-06-25 05:54] LABS: Protime INR 1.02
[2021-06-25 06:05] LABS: ALT/SGPT 30 U/L (12-78); AST/SGOT 21 U/L (15-37); Albumin 4.3 g/dL (3.4-5.0); Alkaline Phosphatase 111 U/L (45-117); BUN Blood Urea Nitrogen 27 mg/dL (7-18); Bicarbonate 27 mmol/L (21-32); Bilirubin Direct 0.1 mg/dL (0-0.2); Bilirubin Total 0.3 mg/dL (0.2-1.0); Glucose Level 143 mg/dL (74-106); Lipase 120 U/L (73-393); Magnesium 2.2 mg/dL (1.8-2.4); NT PRO-BNP 108 pg/mL (<125); Potassium 4.2 mmol/L (3.5-5.1); Protein, Total 8.6 g/dL (6.4-8.2); Sodium Level 139 mmol/L (136-145); Troponin (Emerg Dept Use Only) < 0.02 ng/mL (0.0-0.045)
--- NOTE | 2021-06-25 06:09 | EDPHYS ---
Physician Documentation [facility] Name: Marjorie Vega Age: 56 yrs Sex: Female : 1965 Arrival Date: 06/25/2021 Time: 03:47 Bed 10 Private MD: CATHRYN Physician Damir Abbasi HPI: 06/25 05:08 This 56 yrs old Female presents to ER via Wheelchair with complaints of wili Dizziness, Vomiting, Cough, Headache, Diarrhea. 05:08 The patient presents with dizziness, generalized weakness. Onset: The symptoms/episode wili began/occurred yesterday. Context: occurred at home. Modifying factors: The symptoms are alleviated by nothing, the symptoms are aggravated by nothing. Associated signs and symptoms: Pertinent positives: nausea, vomiting. Severity of symptoms: At their worst the symptoms were mild in the emergency department the symptoms are unchanged. Patient's baseline: Neuro: alert and fully oriented. The patient has not experienced similar symptoms in the past. 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 - Social history:: Smoking status: Patient denies any tobacco usage or history of. - Family history:: not pertinent. ROS: 05:08 Constitutional: Negative for fever, chills, and weight loss, Eyes: Negative for injury, wili pain, redness, and discharge, ENT: Negative for injury, pain, and discharge, Neck: Negative for injury, pain, and swelling, Cardiovascular: Negative for chest pain, palpitations, and edema, Respiratory: Negative for shortness of breath, cough, wheezing, and pleuritic chest pain, Back: Negative for injury and pain, : Negative for injury, bleeding, discharge, and swelling, MS/Extremity: Negative for injury and deformity, Skin: Negative for injury, rash, and discoloration, Neuro: Negative for headache, weakness, numbness, tingling, and seizure, Psych: Negative for depression, anxiety, suicide ideation, homicidal ideation, and hallucinations, Allergy/Immunology: Negative for hives, rash, and allergies, Endocrine: Negative for neck swelling, polydipsia, polyuria, polyphagia, and marked weight changes, Hematologic/Lymphatic: Negative for swollen nodes, abnormal bleeding, and unusual bruising. 05:08 Abdomen/GI: Positive for nausea and vomiting, diarrhea. Exam: 05:08 Constitutional: This is a well developed, well nourished patient who is awake, alert, wili and in no acute distress. Head/Face: Normocephalic, atraumatic. Eyes: Pupils equal round and reactive to light, extra-ocular motions intact. Lids and lashes normal. Conjunctiva and sclera are non-icteric and not injected. Cornea within normal limits. Periorbital areas with no swelling, redness, or edema. ENT: Nares patent. No nasal discharge, no septal abnormalities noted. Tympanic membranes are normal and external auditory canals are clear. Oropharynx with no redness, swelling, or masses, exudates, or evidence of obstruction, uvula midline. Mucous membranes moist. Neck: Trachea midline, no thyromegaly or masses palpated, and no cervical lymphadenopathy. Supple, full range of motion without nuchal rigidity, or vertebral point tenderness. No Meningismus. Chest/axilla: Normal chest wall appearance and motion. Nontender with no deformity. No lesions are appreciated. Cardiovascular: Regular rate and rhythm with a normal S1 and S2. No gallops, murmurs, or rubs. Normal PMI, no JVD. No pulse deficits. Respiratory: Lungs have equal breath sounds bilaterally, clear to auscultation and percussion. No rales, rhonchi or wheezes noted. No increased work of breathing, no retractions or nasal flaring. Abdomen/GI: Soft, non-tender, with normal bowel sounds. No distension or tympany. No guarding or rebound. No evidence of tenderness throughout. Back: No spinal tenderness. No costovertebral tenderness. Full range of motion. Female : Normal external genitalia. Skin: Warm, dry with normal turgor. Normal color with no rashes, no lesions, and no evidence of cellulitis. MS/ Extremity: Pulses equal, no cyanosis. Neurovascular intact. Full, normal range of motion. Neuro: Awake and alert, GCS 15, oriented to person, place, time, and situation. Cranial nerves II-XII grossly intact. Motor strength 5/5 in all extremities. Sensory grossly intact. Cerebellar exam normal. Normal gait. Psych: Awake, alert, with orientation to person, place and time. Behavior, mood, and affect are within normal limits. 06:18 ECG was reviewed by the Attending Physician. [facility] Vital Signs: 04:30 BP 112 / 65; Pulse 78; Resp 18; Temp 97.9(O); Pulse Ox 97% on R/A; Weight 106.59 kg lp1 (R); Height 5 ft. 4 in. (162.56 cm); Pain 5/10; 08:00 BP 114 / 72; Pulse 75; Resp 16 S; Pulse Ox 98% on R/A; aa5 04:30 Body Mass Index 40.34 (106.59 kg, 162.56 cm) lp1 MDM: 04:38 Patient medically screened. [facility] 05:09 Data reviewed: vital signs, nurses notes, lab test result(s), EKG, radiologic studies, [facility] plain films. Data interpreted: monitor and storage bin tender: rate is 77 beats/min, rhythm is regular, Pulse oximetry: on room air is 97 %. Test interpretation: by ED physician or midlevel provider: ECG, plain radiologic studies. Counseling: I had a detailed discussion with the patient and/or guardian regarding: the historical points, exam findings, and any diagnostic results supporting the discharge/admit diagnosis, the presence of at least one elevated blood pressure reading (>120/80) during this emergency department visit, lab results, radiology results, the need for outpatient follow up, for definitive care, a family practitioner. 06/25 05:07 Order name: Basic Metabolic Panel [facility] 06/25 05:07 Order name: CBC with Diff [facility] 06/25 05:07 Order name: LFT's; Complete Time: 06:08 [facility] 06/25 05:07 Order name: Magnesium; Complete Time: 06:08 [facility] 06/25 05:07 Order name: NT PRO-BNP; Complete Time: 06:08 [facility] 06/25 05:07 Order name: PT-INR; Complete Time: 06:08 [facility] 06/25 05:07 Order name: Troponin (emerg Dept Use Only); Complete Time: 06:08 [facility] 06/25 05:07 Order name: Lipase; Complete Time: 06:08 [facility] 06/25 05:08 Order name: Basic Metabolic Panel; Complete Time: 06:08 [facility] 06/25 05:08 Order name: CBC with Automated Diff [facility] 06/25 05:47 Order name: CBC Smear Scan [facility] 06/25 08:01 Order name: SARS-COV-2 RT PCR [facility] 06/25 05:07 Order name: XRAY Chest (1 view) [facility] 06/25 05:07 Order name: EKG; Complete Time: 05:08 [facility] 06/25 05:07 Order name: Cardiac monitoring; Complete Time: 09:29 [facility] 06/25 05:07 Order name: EKG - Nurse/Tech; Complete Time: 06:49 [facility] 06/25 05:07 Order name: IV Saline Lock; Complete Time: 06:49 [facility] 06/25 05:07 Order name: Labs collected and sent; Complete Time: 06:49 [facility] 06/25 05:07 Order name: O2 Per Protocol; Complete Time: 09:29 [facility] 06/25 05:07 Order name: O2 Sat Monitoring; Complete Time: 09:30 [facility] EC:18 Rate is 69 beats/min. Rhythm is regular. QRS [place] is Normal. [place] interval is normal. QRS wili interval is normal. QT interval is normal. No Q waves. T waves are Normal. No ST changes noted. Clinical impression: NSR w/ Non-specific ST/T Changes and No evidence of ischemia. Interpreted by me. Reviewed by me. Administered Medications: 06:14 Drug: Zofran (Ondansetron) 4 mg Route: IVP; Site: right antecubital; lp1 07:55 Follow up: Response: No adverse reaction aa5 06:15 Drug: NS 0.9% 1000 ml Route: IV; Rate: 1 bolus; Site: right antecubital; lp1 09:20 Follow up: IV Status: Completed infusion; IV Intake: 1000ml aa5 Disposition Summary: 06/25/21 06:08 Discharge Ordered Location: Home wili Problem: new wili Symptoms: have improved wili Condition: Stable wili Diagnosis - Vomiting wili - Diarrhea, unspecified wili - Weakness wili Followup: wili - With: Private Physician - When: 2 - 3 days - Reason: Recheck today's complaints, Continuance of care, Re-evaluation by your physician Discharge Instructions: - Discharge Summary Sheet [facility] - Food Choices to Help Relieve Diarrhea, Adult wili - Diarrhea, Adult wili - Weakness wili - Fatigue wili - Weakness, [id number] [facility] Forms: - Medication Reconciliation Form [facility] - Thank You Letter [facility] - Antibiotic Education [facility] - Prescription Opioid Use [facility] Prescriptions: - Zofran 4 mg Oral Tablet - take 1 tablet by ORAL route every 12 hours As needed; 20 tablet; Refills: 0, [facility] Product Selection Permitted - dicyclomine 20 mg Oral Tablet - take 1 tablet by ORAL route 4 times per day; 20 tablet; Refills: 0, Product [facility] Selection Permitted - Pepcid 20 mg Oral Tablet - take 1 tablet by ORAL route every 12 hours for 10 days; 20 tablet; Refills: 0, [facility] Product Selection Permitted Signatures: Dispatcher [employer] Damir Zhu MD MD cha Pena, Laura RN RN lp1 Lacey Chow RN aa5 Corrections: (The following items were deleted from the chart) 04:30 04:28 Home Meds: Iron CR Oral daily; lp1 lp1 07:01 05:08 CORONAVIRUS+MR.LAB.BRZ ordered. [facility] 09:30 05:07 Urine Dipstick-Ancillary ordered. wili aa5
--- NOTE | 2021-06-25 06:09 | ER ---
Nurse's Notes [facility] Name: Marjorie Vega Age: 56 yrs Sex: Female : 1965 Arrival Date: 06/25/2021 Time: 03:47 Bed 10 Private MD: Diagnosis: Vomiting;Diarrhea, unspecified;Weakness Presentation: 06/25 04:27 Chief complaint: Patient states: Vomiting that woke her from sleep at 0100 this AM, lp1 diarrhea that began after; Reports dizziness on movement of head; Reports she has been around her grandchildren that have RSV. Coronavirus screen: Client denies travel out of the [place] in the last 14 days. At this time, the client does not indicate any symptoms associated with coronavirus-19. Ebola Screen: No symptoms or risks identified at this time. Risk Assessment: Do you want to hurt yourself or someone else? Patient reports no desire to harm self or others. Onset of symptoms was June 25, 2021 at 01:00. 04:27 Method Of Arrival: Wheelchair lp1 04:27 Acuity: SHREYA 3 lp1 04:30 Initial Sepsis Screen: Does the patient meet any 2 criteria? No. Patient's initial lp1 sepsis screen is negative. Does the patient have a suspected source of infection? No. Patient's initial sepsis screen is negative. 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 - Social history:: Smoking status: Patient denies any tobacco usage or history of. - Family history:: not pertinent. Screenin:30 Abuse screen: Denies threats or abuse. Denies injuries from another. Nutritional lp1 screening: No deficits noted. Tuberculosis screening: No symptoms or risk factors identified. 06:50 Fall Risk IV access (20 points). lp1 Assessment: 06:50 Pain: Pain began 2-3 days ago. GI: Abdomen is flat, non-distended. lp1 07:50 Reassessment: Patient is alert, oriented x 3, equal unlabored respirations, skin aa5 warm/dry/pink. Patient states feeling better. Awaiting IV fluids to completed before d/c home, pt had arm bent with AC IV, pt instructed to keep arm straight for fluids to finish, pt verbalizes understanding. . 09:20 Reassessment: Patient is alert, oriented x 3, equal unlabored respirations, skin aa5 warm/dry/pink. 09:20 Neuro: Reports headache. aa5 Vital Signs: 04:30 BP 112 / 65; Pulse 78; Resp 18; Temp 97.9(O); Pulse Ox 97% on R/A; Weight 106.59 kg lp1 (R); Height 5 ft. 4 in. (162.56 cm); Pain 5/10; 08:00 BP 114 / 72; Pulse 75; Resp 16 S; Pulse Ox 98% on R/A; aa5 04:30 Body Mass Index 40.34 (106.59 kg, 162.56 cm) lp1 ED Course: 03:47 Patient arrived in ED. bp1 04:28 Triage completed. lp1 04:28 Arm band placed on left wrist. lp1 04:38 Damir Abbasi MD is Attending Physician. wili 05:19 XRAY Chest (1 view) In Process Unspecified. EDMS 05:37 Nadira May, TANNA is Primary Nurse. lp1 06:50 Patient has correct armband on for positive identification. Call light in reach. Side lp1 rails up X 1. Side rails up X2. 06:51 No provider procedures requiring assistance completed. Inserted saline lock: 20 gauge lp1 in right antecubital area, using aseptic technique. 09:25 IV discontinued, intact, bleeding controlled, No redness/swelling at site. Pressure aa5 dressing applied. Administered Medications: 06:14 Drug: Zofran (Ondansetron) 4 mg Route: IVP; Site: right antecubital; lp1 07:55 Follow up: Response: No adverse reaction aa5 06:15 Drug: NS 0.9% 1000 ml Route: IV; Rate: 1 bolus; Site: right antecubital; lp1 09:20 Follow up: IV Status: Completed infusion; IV Intake: 1000ml aa5 Intake: 09:20 IV: 1000ml; Total: 1000ml. aa5 Outcome: 06:08 Discharge ordered by . wili 09:28 Discharged to home ambulatory. aa5 09:28 Condition: stable 09:28 Discharge instructions given to patient, Instructed on discharge instructions, follow up and referral plans. medication usage, Demonstrated understanding of instructions, follow-up care, medications, Prescriptions given X 3. 09:30 Patient left the ED. aa5 Signatures: Dispatcher [employer] EDMS Damir Abbasi MD MD cha Calderon, Audri, RN RN aa5 Nadira May, RN RN lp1 Rossi Amin Corrections: (The following items were deleted from the chart) 04:30 04:28 Home Meds: Iron CR Oral daily; lp1 lp1
--- NOTE | 2021-06-25 07:28 | RAD REPORT ---
EXAM DESCRIPTION: RAD - Chest Single View - 06/25/2021 5:19 am CLINICAL HISTORY: COUGH COMPARISON: Chest Single View dated 10/14/2020; Abdomen Acute Series dated 04/19/2017; Chest Single Vi ew dated 04/09/2016; CHEST PA AND LAT 2 VIEW dated 01/01/2014 FINDINGS: No evidence of edema or pneumonia. The heart size is within normal limits.No acute osseous abnormality. No significant pleural effusions or pneumothorax. IMPRESSION: No acute cardiopulmonary disease.
[2021-06-25 09:37] VITALS: BP 112/65; TEMP 97.9; O2SAT 97
[2021-06-25 10:47] LABS: Blood Morphology Comment NOT SEEN (NOT SEEN); White Blood Cell Scan OK (OK)
[2021-06-25 10:48] LABS: Platelet Estimate DECR
--- NOTE | 2021-06-25 13:00 | EKG ---
Test Date: 2021-06-25 Test Time: 06:14:09 Sandblaster [place]: ANTHONY MEASUREMENT RESULTS: Intervals: Rate: 69 MD: 144 QRSD: 92 QT: 452 QTc: 484 [place]: P: 21 MD: 144 QRS: 1 T: 2 INTERPRETIVE STATEMENTS: Normal sinus rhythm Cannot rule out Anterior infarct, age undetermined Abnormal ECG Compared to ECG 10/14/2020 15:48:53 Myocardial infarct finding now present ST (T wave) deviation no longer present Electronically Signed On 06-25-21 12:59:14 CDT by Asael Mckoy
== END 2021-06-25 09:30 | disposition home or self-care (01) ==
LOC: ER 03:44
DX: R53.1 Weakness (principal); R19.7 Diarrhea, unspecified; I10 Essential (primary) hypertension; Z20.822 Contact with and (suspected) exposure to COVID-19; Z88.1 Allergy status to other antibiotic agents; Z88.5 Allergy status to narcotic agent; Z91.048 Other nonmedicinal substance allergy status
CPT/HCPCS: 96361; 93005; 85025; 80048; 36415; 83735; 85610; 80076; 84484; 83690; 83880; 71045; 96374; 99284; U0003